=== PATIENT | male | born 1975 | race Caucasian/White ===

== ENCOUNTER 2022-09-05 14:09 | Outpatient (CLI) | payer MEDICAID, SELFPAY ==
[2022-09-05 15:00] LABS: Basophils # 0.1 10^3/uL (0.0-0.1); Basophils % 0.8 %; Eosinophils # 0.1 10^3/uL (0.0-0.8); Eosinophils % 1.3 %; Hematocrit 48.5 % (42.0-52.0); Hemoglobin 16.2 g/dL (11.7-16.6); Lymphocytes # 1.8 10^3/uL (0.8-4.8); Lymphocytes % 20.7 %; Mean Corpuscular HGB Conc 33.4 g/dL (30.0-36.0); Mean Corpuscular Hemoglobin 30.6 pg (28.0-34.0); Mean Corpuscular Volume 91.5 fl (80-94); Monocytes # 0.6 10^3/uL (0.2-0.9); Monocytes % 7.5 %; Neutrophils # 5.84 10^3/uL (1.8-7.7); Neutrophils % 69.2 %; Nucleated Red Blood Cells % 0 %; Platelet Count 197 10^3/cmm (130-400); White Blood Count 8.4 10^3/uL (4.0-10.0)
[2022-09-05 15:25] LABS: Estmated Average Glucose 131; Hemoglobin A1C 6.2 % (4.0-6.0)
[2022-09-05 15:35] LABS: Alanine Aminotransferase 18 U/L (0-41); Albumin Level 4.1 g/dL (3.5-5.2); Alkaline Phosphatase 153 U/L (40-130); Anion Gap 17.6 (5-19); Aspartate Amino Transferase 21 U/L (0-40); Blood Urea Nitrogen 26 mg/dL (6-20); Calcium 8.5 mg/dL (8.5-10.5); Carbon Dioxide 22 mmol/L (22-29); Chloride 104 mmol/L (98-107); Chol HDL Ratio 4.15 mg/dL (1.0-5.00); Cholesterol 112 mg/dL (0-200); Globulin 2.1 g/dL (1.3-4.6); Glomerular Filtration Rate 58.9 mL/min (90-130); Glucose 115 mg/dL (65-115); HDL Cholesterol 27 mg/dL (60-100); LDL Cholesterol Calculated 69 mg/dL (50-129); LDL HDL Ratio 2.56 RATIO (0.00-3.22); NT Pro B Type Natriuretic Pept 3457 pg/mL (0-125); Osmolality Calculated 294 mOsm/kg (285-295); Potassium 4.6 mmol/L (3.5-5.1); Sodium 139 mmol/L (136-145); Total Bilirubin 1.7 mg/dL (0.15-1.2); Total Protein 6.2 g/dL (6.6-8.7); Triglycerides 80 mg/dL (0-150)
== END 2022-09-05 14:10 | disposition home or self-care (01) ==
LOC: LAB 14:26
PROVIDERS: PCP Registered Nurse; Visit Provider Registered Nurse
DX: Z01.89 Encounter for other specified special examinations (principal)
CPT/HCPCS: 36415; 80053; 80061; 83036; 83880; 85025

== ENCOUNTER 2022-10-03 14:45 | Outpatient (CLI) | payer MEDICAID, SELFPAY ==
--- NOTE | 2022-10-03 14:51 | USCV_ITS ---
Aspen Stover Age: 47 Gender: M : 1975 Exam Date: 10/03/2022 15:02 Ordering Phys: Griselda Fernández Technologist: CT Exam Location: [facility] [place] Indication: chf BP: 112 / 79 HR: 97 Rhythm: Sinus Technical Quality: Adequate MEASUREMENTS (Male / Female) Normal Values 2D ECHO LV Diastolic Diameter PLAX 5.5 cm 4.2 - 5.9 / 3.9 - 5.3 cm LV Systolic Diameter PLAX 3.9 cm IVS Diastolic Thickness 1.9 cm 0.6 - 1.0 / 0.6 - 0.9 cm IVS Systolic Thickness 3.1 cm LVPW Diastolic Thickness 1.1 cm 0.6 - 1.0 / 0.6 - 0.9 cm LVPW Systolic Thickness 1.3 cm LVOT Diameter 2.1 cm LV Ejection Fraction 2D Teich 45.0 % LV Ejection Fraction MOD 2C 70.1 % LV Ejection Fraction 2C AL 70.0 % LA Diameter 4.3 cm Aorta at Sinotubular Diameter 3.2 cm IVC Diameter 2.1 cm M-MODE Aortic Annulus Diameter 2.9 cm LA Ao Ratio MM 1.7 MV E Point Septal Separation 0.9 cm DOPPLER AV Peak Velocity 359.7 cm/s LVOT Peak Velocity 119.0 cm/s AV Area Cont Eq vti 1.2 cm squared AV Area Cont Eq pk 1.1 cm squared MV Area PHT 3.7 cm squared Mitral E to A Ratio 1.6 MV E' Velocity 103.4 cm/s Mitral E to MV E' Ratio 10.0 Mitral E to LV E' Lateral Ratio 7.8 Mitral E to LV E' Septal Ratio 14.3 TR Peak Velocity 358.0 cm/s TR Peak Gradient 51.3 mmHg TR Mean Velocity 184.6 cm/s TR Mean Gradient 14.5 mmHg TR Velocity Time Integral 62.3 cm TV Peak E Velocity 121.0 cm/s Right Atrial Pressure 8.0 mmHg Pulmonary Artery Systolic Pressu 59.3 mmHg FINDINGS Left Ventricle Moderate left ventricular hypertrophy. Normal left ventricular size and systolic function, EF 70 %. No regional wall motion abnormalities. Grade III/IV diastolic dysfunction (restrictive filling pattern), severely elevated filling pressures. Right Ventricle The right ventricle is normal in size and function. Right Atrium Mildly increased right atrial size. Left Atrium Mildly increased left atrial size. Mitral Valve Thickened mitral valve. Mild mitral valve regurgitation. Aortic Valve Moderate to heavy aortic valve calcification. Moderate aortic valve stenosis, mean gradient 28 mmHg, JOSH 1.1 cm squared. Mild aortic valve regurgitation. Peak velocity of 3.82 m/s with a peak gradient of 58 mmHg Tricuspid Valve Mild tricuspid valve regurgitation. Moderate pulmonary hypertension with an estimated pulmonary artery peak systolic pressure of 59 mmHg Pulmonic Valve No pulmonary valve stenosis. Pericardium Normal pericardium without effusion. Aorta Normal aortic annulus size. IVC Normal IVC dimension with <50% respiratory change of the inferior vena cava. CONCLUSIONS Moderate left ventricular hypertrophy. Normal left ventricular size and systolic function, EF 70 %. No regional wall motion abnormalities. Grade III/IV diastolic dysfunction (restrictive filling pattern), severely elevated filling pressures. Mild biatrial enlargement. Moderate aortic valve stenosis, mean gradient 28mmHg, JOSH 1.1 cm squared. Peak velocity of 3.82 m/s and a peak gradient of 58 mmHg Mild aortic valve regurgitation. Moderate to heavy aortic valve calcification. Mild tricuspid valve regurgitation. Moderate pulmonary hypertension with an estimated pulmonary artery peak systolic pressure of 59 mmHg. There is no pericardial effusion. There are no intracardiac masses. Compared to the study from 03/14/2016, there is some worsening of the aortic valve stenosis, and development of pulmonary hypertension Dr Jose L Aguirre MD FAC (Electronically Signed) Final Date: 05 Oct 2022 09:19 S
== END 2022-10-03 14:46 | disposition home or self-care (01) ==
LOC: RAD 14:47
PROVIDERS: PCP Registered Nurse; Visit Provider Registered Nurse
DX: R79.89 Other specified abnormal findings of blood chemistry (principal); I35.0 Nonrheumatic aortic (valve) stenosis; I35.1 Nonrheumatic aortic (valve) insufficiency; I07.1 Rheumatic tricuspid insufficiency
CPT/HCPCS: 93306

== ENCOUNTER → 2022-10-08 14:24 | Outpatient (BNVA) | payer MEDICAID, SELFPAY | PROVIDERS: PCP Registered Nurse; Visit Provider Internal Medicine | DX: I11.0 Hypertensive heart disease with heart failure (principal); I50.9 Heart failure, unspecified; I35.0 Nonrheumatic aortic (valve) stenosis; R07.9 Chest pain, unspecified; F17.220 Nicotine dependence, chewing tobacco, uncomplicated | CPT/HCPCS: 93005; 99214 ==

== ENCOUNTER → 2022-10-08 14:54 | Outpatient (BNVA) | payer MEDICAID, SELFPAY | PROVIDERS: PCP Registered Nurse; Visit Provider Internal Medicine | DX: R07.9 Chest pain, unspecified (principal) | CPT/HCPCS: 93005 ==

== ENCOUNTER 2022-11-03 10:11 | Outpatient (CLI) | payer MEDICAID, SELFPAY ==
--- NOTE | 2022-11-03 | ECG_ITS ---
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 Interpretive Statements NAME OF STUDY: LEXISCAN SESTAMIBI STRESS TEST INDICATION: [Shortness of Breath, ] Initially stress test was exercise stress test however patient could not reach target heart rate due to symptoms. It was switched to Lexiscan. Procedure: At the baseline, the blood pressure was 116/78 mmHg with a heart rate of 89 bpm. The electrocardiogram showed normal sinus rhythm, normal axis with normal ST and T's. The Lexiscan was infused over a period of 20 seconds. A total of 0.4 mg of Lexiscan was infused. The stress phase was continued for a total of 5 minutes. Heart rate was at the end of stress phase was 100 bpm and a blood pressure of 117/78 mmHg. The EKG at the peak infusion revealed normal sinus rhythm with no significant ST-T wave changes. Sestamibi was injected 20 seconds after the Lexiscan infusion. Blood pressure at the end of recovery phase was 112/81 mmHg with a heart rate of 100 bpm. Conclusion: 1. Normal EKG response to Lexiscan infusion 2. No Lexiscan induced chest pain or cardiac arrhythmia. 3. Normal blood pressure and heart rate response. 4. Sestamibi/sestamibi perfusion scan pending; see separate report. Electronically Signed On 11-14-2022 14:36:21 CDT by Umair Lepe M.D. [id number]
[2022-11-03 10:54] VITALS: BMI 37.5
--- NOTE | 2022-11-03 10:56 | NMCV_ITS ---
NM karyn perf SPECT r/s* [id number] Aspen Stover Age: 47 Gender: M : 1975 Exam Date: 11/03/2022 11:36 Ordering Phys: Umair Lepe M.D ([email or web address]) Technologist: RAUL Montesinos Exam Location: [facility] Indications: CHEST PAIN STRESS TEST [facility] IMAGE PROTOCOL Rest/Stress 1 Lexiscan Day Radiopharmaceutical Dose (mCi) Administration Site Administered by Rest: Tc-99m 10.7 IV RAUL Montesinos Sestamibi Stress:Tc-99m 32.7 IV RAUL Zayas Sestamibi Rest: 03-Nov-2022 60 Discovery 630 Stress: 03-Nov-2022 30 Discovery 630 0.4mg Lexiscan. Images obtained in supine and prone position. SPECT RESULTS Technical Quality: Excellent Raw Data Analysis: Normal Image Corrections: No attenuation or motion correction applied Summed Stress Score: 10 Summed Rest Score: 9 Summed Difference Score: 2 PERFUSION FINDINGS There is a large in size fixed perfusion defect noted in inferior wall and apical wall. 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 Small sized area of prior infarct is also seen in LAD territory. FUNCTIONAL RESULTS (calculated via Gated SPECT) Stress Image LV EF (%): 47 Stress EDV (mL):206 TID: 0.94 Stress ESV (mL):109 FUNCTIONAL FINDINGS: LV systolic function is mildly reduced with EF of 47% IMPRESSIONS 1. Abnormal myocardial perfusion imaging with large area of prior infarct seen in RCA territory. 2. Small area of prior infarct is seen in LAD territory. 3. LV systolic function is mildly reduced with EF of 47% mUair Lepe MD (Electronically Signed) Final Date: 10 November 2022 10:38 S
[2022-11-03] MEDS: regadenoson 0.4 Mg/5 ml Syringe IVP (12:25)
[2022-11-03 12:44] VITALS: BP 112/81; PULSE 102
--- NOTE | 2022-11-03 12:47 | PC.NURSE ---
1220: Patient unable to reach target heart rate during Exercise MIBI due symptoms. Patient changed to Lexiscan per physicians orders. See orders.
== END 2022-11-03 10:12 | disposition home or self-care (01) ==
LOC: CDL 10:12
PROVIDERS: PCP Registered Nurse; Visit Provider Internal Medicine
DX: R07.9 Chest pain, unspecified (principal); I25.2 Old myocardial infarction
CPT/HCPCS: 36415; 78452; 93017; A9500; J2785

== ENCOUNTER 2023-01-27 21:12 | Emergency (ER) | payer MEDICAID, SELFPAY ==
[2023-01-27 21:13] VITALS: BP 138/72; PULSE 95; RESP 20; TEMP 36.7; O2SAT 92; BMI 38.9
--- NOTE | 2023-01-27 21:22 | ECG_ITS ---
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 Measurements Intervals [place] Rate: 98 P: 65 MA: 168 QRS: -5 QRSD: 105 T: 89 QT: 383 QTc: 489 Interpretive Statements SINUS RHYTHM LEFT ATRIAL ENLARGEMENT [-0.15mV P-WAVE IN V1/V2] Compared to ECG 10/08/2022 15:01:13 Right-axis deviation no longer present T-wave abnormality no longer present Electronically Signed On 01-28-2023 15:44:47 CDT by Aneudy Tapia M.D. [id number] f
--- NOTE | 2023-01-27 21:24 | XRR_ITS ---
PROCEDURE INFORMATION: Exam: XR Chest Exam date and time: 01/27/2023 9:40 PM Age: 47 years old Clinical indication: Pain; Chest pressure; Additional info: Chest pain TECHNIQUE: Imaging protocol: Radiologic exam of the chest. Views: 1 view. COMPARISON: No relevant prior studies available. FINDINGS: Lungs: Unremarkable. No consolidation. Pleural spaces: Unremarkable. No pleural effusion. No pneumothorax. Heart/Mediastinum: Cardiomegaly. Bones/joints: Unremarkable. XR/XR chest 1V portable [id number] IMPRESSION: Cardiomegaly, negative for infiltrate
--- NOTE | 2023-01-27 21:34 | W.ED.CHESTPA ---
HPI - Chest Pain General: Chief Complaint: Chest Pain Stated Complaint: CP Time Seen by Provider: 01/27/23 21:23 History of Present Illness: Patient presents to the ER with complaints of chest pain and shortness of breath since about 7 PM tonight. Patient was administered 4 aspirins, 1 nitro by EMS and states the pain has improved. Patient said he has had nausea and vomiting for about the last 2 days unrelated to the chest pain and shortness of breath. Patient does have a history of tachycardia with atrial flutters and palpitations. Patient did see Dr. Delarosa and had a stress test that was negative in the past several months. Patient appears in no acute distress at this time lying in bed comfortably playing on his phone. Review of Systems General: Reports: 10 or more systems reviewed and unremarkable except in HPI and below PFSH ED PFSH: Medical History CHF (congestive heart failure) Family History Father Heart disease Diabetes Mother Diabetes Grandfather Diabetes Heart disease Social History Smoking and tobacco status: current every day smoker smokeless tobacco Smokeless tobacco user: chewing tobacco Alcohol intake: current Alcohol intake frequency: holidays/special occasions only Substance/Drug Use: former Physical Exam Const: COMMON NORMALS: no acute distress, average body habitus, patient oriented x3, no limitations, healthy appearing, alert and well nourished HENMT: COMMON NORMALS: normocephalic, atraumatic, hearing grossly normal bilaterally, external ears normal and moist oral mucous membranes HEAD & SCALP: normocephalic and atraumatic EXTERNAL EAR: Yes external ears normal Eye: COMMON NORMALS: Equal, round and reactive pupils present, EOMs intact bilaterally and no scleral icterus PUPIL: Yes Equal, round and reactive pupils present Neck/C-Spine: COMMON NORMALS: no JVD Chest: COMMONS NORMALS: normal inspection of the chest and normal palpation of entire chest wall Resp: COMMON NORMALS: normal respiratory effort, No retractions, No use of accessory muscles and clear to auscultation bilaterally AUSCULTATION: clear to auscultation bilaterally Cardio: COMMON NORMALS: no JVD, regular rate, regular rhythm, S1 normal heart sound present, S2 normal heart sound present, No gallops present (Cardio), No clicks present (Cardio), No murmurs present (Cardio) and No rub (Cardio) RATE: regular rate RHYTHM: regular rhythm HEART SOUNDS: S1 normal heart sound present and S2 normal heart sound present GI: COMMON NORMALS: Normal to inspection, nondistended, normoactive bowel sounds present, Soft to palpation, non-tender, No hepatosplenomegaly present and no masses PALPATION: Yes Soft to palpation and Yes No hepatosplenomegaly present : COMMON NORMALS: Yes no CVA tenderness BLADDER/KIDNEY EXAM: Yes no CVA tenderness Back/Pelvis: COMMON NORMALS: no CVA tenderness Neuro: COMMON NORMALS: patient oriented x3 SENSORIUM/ORIENTATION: Yes alert Course Vital Signs: Vital signs: Vital Signs Temperature 98.0 F 01/27/23 21:13 Pulse Rate 93 01/27/23 22:20 Respiratory Rate 22 H 01/27/23 22:20 Blood Pressure 115/61 01/27/23 22:20 Pulse Oximetry 91 01/27/23 22:20 Oxygen Delivery Me thod Room Air 01/27/23 22:20 MDM - Chest Pain Medical Decision Making Patient presents to the ER via EMS for chest pain shortness of breath. Patient was given the standard physical exam and chest pain work-up with serial troponins and serial EKGs as well as other various labs. All of which did not show any acute changes for cardiac issues. Patient will be discharged home to follow-up with his PCP for further evaluation testing. Differential Diagnosis Unlikely acute massive pulmonary embolism, acute respiratory failure, acute myocardial infarction, cardiac arrest or sudden cardiac Medical Records I reviewed the patient's medical records. Lab Data I reviewed the patient's lab results. 01/27/23 21:40 01/27/23 21:40 Radiology Impressions Chest X-Ray 01/27/23 21:24 IMPRESSION: Cardiomegaly, negative for infiltrate Laboratory Results WBC 7.61 10^3/uL (3.29-11.43) 01/27/23 21:40 RBC 5.04 10^6/uL (3.85-5.65) 01/27/23 21:40 Hgb 15.60 g/dL (11.27-16.99) 01/27/23 21:40 Hct 46.5 % (37-53) 01/27/23 21:40 MCV 92.3 fl (82-101) 01/27/23 21:40 MCH 31.0 pg (27-33) 01/27/23 21:40 MCHC 33.5 g/dL (30-55) 01/27/23 21:40 RDW 15.3 % (12.1-15.1) H 01/27/23 21:40 Plt Count 209 10^3/cmm (157-399) 01/27/23 21:40 MPV 10.1 fL (7.4-10.4) 01/27/23 21:40 Neut % (Auto) 66.2 % 01/27/23 21:40 Lymph % (Auto) 22.9 % 01/27/23 21:40 [place] % (Auto) 8.3 % 01/27/23 21:40 Eos % (Auto) 1.3 % 01/27/23 21:40 Baso % (Auto) 0.9 % 01/27/23 21:40 Neut # (Auto) 5.04 10^3/uL (1.8-7.7) 01/27/23 21:40 Lymph # (Auto) 1.7 10^3/uL (0.8-4.8) 01/27/23 21:40 [place] # (Auto) 0.6 10^3/uL (0.2-0.9) 01/27/23 21:40 Eos # (Auto) 0.1 10^3/uL (0.0-0.8) 01/27/23 21:40 Baso # (Auto) 0.1 10^3/uL (0.0-0.1) 01/27/23 21:40 Nucleated RBC % (auto) 0 % 01/27/23 21:40 Nucleated RBCs # 0.0 /100WBC 01/27/23 21:40 Sodium 136 mmol/L (136-145) 01/27/23 21:40 Potassium 4.4 mmol/L (3.5-5.1) 01/27/23 21:40 Chloride 102 mmol/L (98-107) 01/27/23 21:40 Carbon Dioxide 22 mmol/L (22-29) 01/27/23 21:40 Anion Gap 16.4 (5-19) 01/27/23 21:40 BUN 24 mg/dL (6-20) H 01/27/23 21:40 Creatinine 1.0 mg/dL (0.7-1.2) 01/27/23 21:40 GFR Calculation 79.8 mL/min (90-130) L 01/27/23 21:40 Glucose 116 mg/dL (65-115) H 01/27/23 21:40 Calculated Osmolality 287 mOsm/kg (285-295) 01/27/23 21:40 Calcium 8.6 mg/dL (8.5-10.5) 01/27/23 21:40 Total Bilirubin 3.7 mg/dL (0.15-1.2) H 01/27/23 21:40 AST 26 U/L (0-40) 01/27/23 21:40 ALT 18 U/L (0-41) 01/27/23 21:40 Alkaline Phosphatase 168 U/L (40-130) H 01/27/23 21:40 Troponin T Baseline 24 ng/L (0-15) H 01/27/23 21:40 Troponin T 120 Minute 24.50 ng/L (0-15) H 01/27/23 23:34 Delta Troponin T 0.50 ABS# (0-10) 01/27/23 23:34 NT-Pro-B Natriuret Pep 1752 pg/mL (0-125) H 01/27/23 21:40 Total Protein 6.0 g/dL (6.6-8.7) L 01/27/23 21:40 Albumin 3.8 g/dL (3.5-5.2) 01/27/23 21:40 Globulin 2.2 g/dL (1.3-4.6) 01/27/23 21:40 EKG Data EKG 1: I personally reviewed and interpreted this EKG as follows: EKG interpretation date: 01/27/23 EKG interpretation time: 21:22 Prior EKG tracings: not available for review Interpretation: EKG shows ventricular rate 98 beats minute, AZ interval 168, QRS duration 105, QTc of 438, sinus rhythm, left atrial enlargement EKG 2: I personally reviewed and interpreted this EKG as follows: EKG interpretation date: 01/27/23 EKG interpretation time: 23:06 Prior EKG tracings: available for review Interpretation: EKG shows ventricular rate 88 bpm, AZ interval 161, QRS duration 104, QTc 444, sinus rhythm, possible left atrial lodgment, nonspecific T wave abnormality Discharge Plan Discharge Patient Disposition: Home Clinical Impression: Chest pain, non-cardiac Condition: Stable Prescriptions: No Action bumetanide 2 mg tablet 2 mg PO DAILY albuterol sulfate 90 mcg/actuation HFA aerosol inhaler 2 puff inhalation Q6H PRN lisinopril 20 mg tablet 20 mg PO DAILY divalproex [Depakote] 500 mg tablet,delayed release (DR/EC) 500 mg PO BID trazodone 100 mg tablet 100 mg PO DAILY PRN sertraline 150 mg capsule 150 mg PO DAILY Discharge Orders: Discharge ED (Routine); Ordered 01/28/23 Ordered By: Chirag Diggs Referrals: Griselda Fernández [Primary Care Provider] - 1 week Patient Instructions: Chest Pain - Noncardiac Activity Restrictions/Additional Instructions: Please follow-up with your family practice physician in the next 7 days or sooner as needed. If your pain returns or worsens please feel free to come back to the ER for further evaluation and treatment. Coding Level of Care Code ED Space Controller for Jose Kim
[2023-01-27 21:43] LABS: Basophils # 0.1 10^3/uL (0.0-0.1); Basophils % 0.9 %; Eosinophils # 0.1 10^3/uL (0.0-0.8); Eosinophils % 1.3 %; Hematocrit 46.5 % (37-53); Lymphocytes # 1.7 10^3/uL (0.8-4.8); Lymphocytes % 22.9 %; Mean Corpuscular HGB Conc 33.5 g/dL (30-55); Mean Corpuscular Volume 92.3 fl (82-101); Mean Platelet Volume 10.1 fL (7.4-10.4); Monocytes # 0.6 10^3/uL (0.2-0.9); Monocytes % 8.3 %; Neutrophils # 5.04 10^3/uL (1.8-7.7); Neutrophils % 66.2 %; Nucleated Red Blood Cells % 0 %; Platelet Count 209 10^3/cmm (157-399); Red Blood Count 5.04 10^6/uL (3.85-5.65); Red Cell Distribution Width 15.3 % (12.1-15.1); White Blood Count 7.61 10^3/uL (3.29-11.43)
[2023-01-27 22:10] LABS: Troponin(5th) Baseline 24 ng/L (0-15)
[2023-01-27 22:18] LABS: Alanine Aminotransferase 18 U/L (0-41); Albumin Level 3.8 g/dL (3.5-5.2); Alkaline Phosphatase 168 U/L (40-130); Anion Gap 16.4 (5-19); Aspartate Amino Transferase 26 U/L (0-40); Blood Urea Nitrogen 24 mg/dL (6-20); Calcium 8.6 mg/dL (8.5-10.5); Carbon Dioxide 22 mmol/L (22-29); Chloride 102 mmol/L (98-107); Globulin 2.2 g/dL (1.3-4.6); Glomerular Filtration Rate 79.8 mL/min (90-130); Glucose 116 mg/dL (65-115); NT Pro B Type Natriuretic Pept 1752 pg/mL (0-125); Osmolality Calculated 287 mOsm/kg (285-295); Potassium 4.4 mmol/L (3.5-5.1); Sodium 136 mmol/L (136-145); Total Bilirubin 3.7 mg/dL (0.15-1.2)
[2023-01-27 22:20] VITALS: BP 115/61; PULSE 93; RESP 22; O2SAT 91
--- NOTE | 2023-01-27 23:24 | ECG_ITS ---
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 Measurements Intervals [place] Rate: 88 P: 64 [place]: 161 QRS: -13 QRSD: 104 T: 97 QT: 399 QTc: 483 Interpretive Statements SINUS RHYTHM POSSIBLE LEFT ATRIAL ENLARGEMENT [-0.1mV P-WAVE IN V1/V2] NONSPECIFIC T-WAVE ABNORMALITY Compared to ECG 10/08/2022 15:01:13 Right-axis deviation no longer present T-wave abnormality still present Electronically Signed On 01-27-2023 23:15:19 CDT by Umair Lepe M.D. [id number]
[2023-01-28 00:31] VITALS: BP 121/67; PULSE 91; RESP 20; O2SAT 94
== END 2023-01-28 00:32 | disposition home or self-care (01) ==
PROVIDERS: Emergency Provider Emergency Medicine; PCP Registered Nurse
DX: R07.89 Other chest pain (principal); I50.9 Heart failure, unspecified; F17.220 Nicotine dependence, chewing tobacco, uncomplicated
CPT/HCPCS: 36415; 71045; 80053; 83880; 84484; 85025; 93005; 99285

== ENCOUNTER 2023-03-10 13:03 | Outpatient (CLI) | payer MEDICAID, SELFPAY ==
--- NOTE | 2023-03-10 13:15 | USCV_ITS ---
Aspen Stover Age: 48 Gender: M : 1975 Exam Date: 03/10/2023 13:18 Ordering Phys: Umair Lepe M.D ([email or web address]) Technologist: Exam Location[place] [facility] Indication: as ai BP: 118 / 68 HR: 95 Rhythm: Sinus Technical Quality: Adequate MEASUREMENTS (Male / Female) Normal Values 2D ECHO LVOT Diameter 2.1 cm LV Ejection Fraction MOD 2C 70.2 % LV Ejection Fraction 2C AL 70.3 % LA Diameter 4.2 cm IVC Diameter 2.0 cm M-MODE Aortic Annulus Diameter 2.8 cm LA Ao Ratio MM 1.6 MV E Point Septal Separation 1.1 cm DOPPLER AV Peak Velocity 374.0 cm/s LVOT Peak Velocity 108.0 cm/s AV Area Cont Eq vti 1.0 cm squared AV Area Cont Eq pk 1.0 cm squared MV Area PHT 5.9 cm squared Mitral E to A Ratio 1.2 MV E' Velocity 90.2 cm/s Mitral E to MV E' Ratio 13.3 Mitral E to LV E' Lateral Ratio 8.1 Mitral E to LV E' Septal Ratio 38.9 TR Peak Velocity 329.7 cm/s TR Peak Gradient 43.5 mmHg Right Atrial Pressure 3.0 mmHg Pulmonary Artery Systolic Pressu 46.5 mmHg RV Acceleration Time 0.1 s FINDINGS Left Ventricle Left ventricle is normal in size. LV systolic function is normal with EF of 60-65%. No regional wall motion abnormalities. Right Ventricle Normal in size and function Right Atrium Normal in size Left Atrium Normal in size Mitral Valve Mild mitral regurgitation. Aortic Valve Aortic valve is thickended. Moderate to severe aortic stenosis with mean gradient across aortic valve of 0.85cm2 and mean gradient across aortic valve of 31 mmHg. Moderate aortic regurgitation. Tricuspid Valve Mild tricuspid regurgitation. RVSP is 40-45mmHg. This is consistent with mild pulmonary hypertension Pulmonic Valve Not well visualized Pericardium Normal Aorta Normal in size IVC Appears to be normal CONCLUSIONS LV systolic function is normal with EF of 60-65% Mild mitral regurgitation Moderate to severe aortic stenosis with mean gradient of 0.85cm2 and mean gradient across aortic valve of 31mmHg. Moderate aortic regurgitation Mild pulmonary hypertension Mild tricuspid regurgitation Compared to prior echocardiogram from 10/03/2022, aortic stenosis has progressed and is moderate to severe now. Also has moderate aortic regurgitation Umair Lepe MD (Electronically Signed) Final Date: 14 March 2023 12:59 S
== END 2023-03-10 13:04 | disposition home or self-care (01) ==
PROVIDERS: PCP Registered Nurse; Visit Provider Internal Medicine
DX: R06.02 Shortness of breath (principal); I08.3 Combined rheumatic disorders of mitral, aortic and tricuspid valves; I27.20 Pulmonary hypertension, unspecified
CPT/HCPCS: 93306; 99214

== ENCOUNTER 2023-03-26 05:33 | Outpatient (CLI) | payer MEDICAID, SELFPAY ==
[2023-03-26] VITALS (17 sets, daily range): BP systolic 87–126; BP diastolic 44–77; PULSE 81–95; RESP 12–21; TEMP 36.6; O2SAT 92–100; BMI 37.9
--- NOTE | 2023-03-26 06:00 | XACV_ITS ---
Exam Room: 2 Ht: 170 cm Wt: 110 kg BSA: 2.33 m2 Gender: Male : 1975 Any Known Allergies: Penicillins Exam Priority: Routine Procedure(s): Procedure Description: Diagnostic procedure Procedure Description: Left Heart Catheterization Procedure Description: Right Heart Catheterization Procedure Description: O2 saturation Procedure Description: Coronary Angiography Diagnostic Cath Status: Elective Diagnostic Findings * INDICATION: 48-year-old man with past medical history of hypertension has been having worsening dyspnea on exertion. He had moderate to severe aortic stenosis by echo, atleast moderate aortic regurgitation and had a stress test that was abnormal. Plan for right and left heart cath with valve study. * Left Main is short and has no disease. * Left Anterior Descending has no significant disease. * Circumflex has no significant disease. * RCA does not have significant disease. Small sized Posterior Descending Right: obstructive 70% stenosis, JOSE: 3 flow. * Right heart cath findings: RA pressure: 21 mmHg. RV pressure: 73/3/ 24 mmHg. PA pressure: 81/39/54 mmHg. PCW: 25 mmHg TP. Cardiac output: 3.57 L/min ao sat: 96%. PA sat: 61%. PVR: 8.12 Wood units. Severe mixed pulmonary hypertension Aortic valve study: Aortic valve is heavily calcified. Mean gradient across aortic valve: 46 mmHg Aortic valve area is 0.43cm2. * Coronary angiography shows co-dominance. Conclusions 1. Nonobstructive CAD 2. with stenosis of 3. small sized 4. PDA. 5. Medical management. 6. Severe aortic stenosis. 7. Severely elevated right and left sided cardiac pressures. 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 Recommendations * We will refer patient to CT surgery team for aortic valve replacement. Aortic valve anatomy could not be well visualized because of heavy calcification however is likely bicuspid given patient's history, age, calcification aortic regurgitation (which is at least moderate in intensity). * We will uptitrate diuretic therapy. * Outpatient cardiology follow up in 1-2 weeks. Interventional RX Recommendation: other cardiac therapy w/o CABG/PCI Diagnostic RX Recommendation: other cardiac therapy w/o CABG/PCI Anticoagulation: Heparin Pressures Phase:Rest AO : 130 / 61 ( 84 ) @ 9:29:00 AM 88 / 64 ( 75 ) @ 9:31:00 AM 118 / 85 ( 101 ) @ 9:41:00 AM 99 / 82 ( 90 ) @ 9:42:00 AM 92 / 67 ( 79 ) @ 9:53:00 AM LV : 156 / -1 / 43 @ 9:53:00 AM RV : 73 / 3 / 24 @ 9:21:00 AM PA : 81 / 39 ( 54 ) @ 9:19:00 AM RA : a wave = 28 v wave = 24 mean = 21 @ 9:21:00 AM PCW : a wave = 30 v wave = 27 mean = 25 @ 9:19:00 AM O2 Content Phase:Rest PA : O2 Content O2: 61.1 @ 9:31:00 AM Saturations Phase:Rest AO : 96 @ 9:29:00 AM PA : 61 @ 9:31:00 AM Cardiac Output Phase:Rest Brandon : 4 @ 9:02:48 AM Brandon Cardiac Index: 2 @ 9:02:48 AM Flow Phase:Rest Qp : 4 @ 9:02:48 AM Qs : 4 @ 9:02:48 AM Valves Phase:DefaultPhase AV : 64.0 @ 9:02:48 AM 64.0 @ 9:02:48 AM AV Mean Gradient: 46.0 @ 9:02:48 AM 46.0 @ 9:02:48 AM AV Flow: 129 @ 9:02:48 AM AV Area: 0.4 @ 9:02:48 AM AV Area Index: 0.20 @ 9:02:48 AM Clinical Evaluation EBL: 5mL-10mL Procedural Details Pre-Procedure Time Out. Identified patient by full name and date of as verbalized by the patient/guarantor. Does the consent match the physician's order: Yes. Accurate & Complete Informed Consent: Yes. Inpatient/Outpatient History & Physical on Chart: Yes. If H&P is completed, is and addenduem needed: No; If yes, is the addendum complete: N/A. Visualize and Verify Site with Patient/Guarantor: N/A. Relevant Radiology Images available: Yes. Pre-op teaching completed and patient verbalized understanding. The risks, benefits, and alternatives of sedation and/or procedure were discussed by physician. The patient agrees to continue. Procedure started. Physician arrived. [facility] Clinical Fraility Score: 3: Managing Well. Recreation Activities Coordinator Indications: Valvular Disease. Chest Pain Symptom Assessment: Asymptomatic. Correct patient, site and procedure confirmed by cath team. PERRLA. Strong, equal hand audio visual collections coordinator bilaterally. Lungs clear x 5 lobes. IV Site on Arrival: 20 gauge in the right anticubital. IV Site on Arrival: 20 gauge in the left anticubital. IV Fluids: 0.9% NaCl at KVO. 0 mL infused prior to supervisor laboratory. Pre Procedural Pulses: bilateral dorsalis pedis was 3+. Pre Procedural Pulses: bilateral posterior tibial was 3+. Pre Procedural Pulses: bilateral radial was 3+. right groin was prepped with chloroprep then draped in the usual sterile fashion. right radial was prepped with chloroprep then draped in the usual sterile fashion. Baseline sample Acquired. HR: 89 BPM. Lidocaine 1% infiltrated to the right brachial. Sheath wire inserted through the right brachial IV catheter. IV catheter removed OTW. Ambler-Sneha MON catheter inserted. Oximetry samples were obtained. Normal venous range: 60-85%. Normal arterial range: 95-100%. Pressure measurements obtained. Ambler-Sneha out. Lidocaine 1% infiltrated to the right radial. Arterial access obtained. Respiratory called to run O2 saturations. Oxygen started at 2liters/min via nasal canula. A 5 south korean TIG catheter in over wire. Multiple views taken of left coronary artery. Catheter removed over the exchange wire. A 5 south korean JL3.5 catheter in over wire. Catheter removed over the exchange wire. A 5 south korean JR4 catheter in over wire. Multiple views taken of left coronary artery. Catheter redirected to the RCA. Catheter removed over the exchange wire. A 6 south korean Mabscott Pig catheter in over wire. Gradient taken: LV 156/-2,43; AO 92/67(79); Mean: 46mmHg, Peak to Peak: 64mmHg, SEP: 28sec/min; HR: 89 BPM; SpO2: 96%. Catheter removed over the exchange wire. A TR Band was successful obtaining hemostatsis at the Right Radial artery insertion site. A Manual Compression was successful obtaining hemostatsis at the Right Brachial Vein insertion site. Vital chart was stopped. Post Procedure: Pulses reassessed and unchanged. PERRLA. Strong, equal hand audio visual collections coordinator bilaterally. No VTE prophylaxis required. Medication's Wasted: Lidocaine 1% = 3 mL. Medication's Wasted: Nitro = 49.4 mcg. Medication's Wasted: Other = Fentanyl 50mcg Versed 2 mg. Total IV fluids: 80 mL. Complications: None. Post-op diagnosis: Valvular Disease. Estimated blood loss: 5mL-10mL. Responsiveness - Normal response to verbal stimuli; alert and oriented, PERRLA. Airway - Unaffected, no intervention required; spontaneous ventilation. Circulation: W/N/L, pulses unchanged. Nausea/Vomiting: No. Procedure completed. Patient transferred by wheelchair to CPRU. Access Site Site: Right Brachial Vein Sheath Size: 6 Fr Hemostasis Method: Manual Compression Hemostasis Success: Successful Site: Right Radial artery Sheath Size: 6 Fr Hemostasis Method: TR Band Hemostasis Success: Successful Procedure Medications Start: 7:55 AM Stop: 7:55 AM Medication: Versed 1 mg and Fentanyl 25 mcg Amount: 1 Route: I.V. Start: 8:15 AM Stop: 8:15 AM Medication: Versed Amount: 1 mg Route: I.V. Start: 8:27 AM Stop: 8:27 AM Medication: Nitrogylcerin Amount: 200 mcg Route: I.A. Start: 8:29 AM Stop: 8:29 AM Medication: Heparin Amount: 5000 units Start: 8:45 AM Stop: 8:45 AM Medication: Fentanyl Amount: 25 mcg Route: I.V. Start: 8:45 AM Stop: 8:45 AM Medication: Nitrogylcerin Amount: 200 mcg Route: I.A. Start: 8:49 AM Stop: 8:49 AM Medication: Nitrogylcerin Amount: 200 mcg Route: I.A. I, the attending physician, have reviewed and verified all procedure medications. Yes, all medications given per verbal order History/Risk Factors Hypertension: Yes Dyslipidemia: No Peripheral Arterial Disease (PAD): No Myocardial Infarction (MA): No Obesity: No Renal Disease: No Tobacco Use: Current/Recent(w/in 1 year) Prior Interventions PCI: No CABG: No Valve Surgery: No Report Signatures Finalized by Umair Lepe MD on 03/29/2023 11:56 AM
[2023-03-26 06:27] LABS: Basophils # 0.1 10^3/uL (0.0-0.1); Basophils % 0.8 %; Eosinophils # 0.2 10^3/uL (0.0-0.8); Eosinophils % 3.7 %; Hematocrit 49.6 % (37-53); Lymphocytes # 1.6 10^3/uL (0.8-4.8); Mean Corpuscular HGB Conc 33.3 g/dL (30-55); Mean Corpuscular Hemoglobin 30.7 pg (27-33); Mean Corpuscular Volume 92.4 fl (82-101); Mean Platelet Volume 9.9 fL (7.4-10.4); Monocytes # 0.5 10^3/uL (0.2-0.9); Monocytes % 7.7 %; Neutrophils # 3.81 10^3/uL (1.8-7.7); Neutrophils % 61.5 %; Nucleated Red Blood Cells % 0 %; Platelet Count 188 10^3/cmm (157-399); Red Blood Count 5.37 10^6/uL (3.85-5.65); Red Cell Distribution Width 15.5 % (12.1-15.1)
[2023-03-26] MEDS: diphenhydrAMINE 50 mg Capsule PO (06:41)
[2023-03-26] MEDS: aspirin 325 mg Tablet PO (06:41)
[2023-03-26 06:48] LABS: Anion Gap 15.1 (5-19); Blood Urea Nitrogen 23 mg/dL (6-20); Calcium 9.3 mg/dL (8.5-10.5); Carbon Dioxide 24 mmol/L (22-29); Chloride 106 mmol/L (98-107); Glomerular Filtration Rate 71.1 mL/min (90-130); Glucose 152 mg/dL (65-115); Osmolality Calculated 299 mOsm/kg (285-295); Potassium 4.1 mmol/L (3.5-5.1); Sodium 141 mmol/L (136-145)
--- NOTE | 2023-03-26 07:53 | P.HP_ITS ---
Same Day Surgery H&P Indication for Procedure/HPI DATE OF PROCEDURE: March 26, 2023 CHIEF COMPLAINT/INDICATIONFOR SURGICAL PROCEDURE: Moderate to severe aortic stenosis/abnormal stress test/ Worsening dyspnea on exertion PREOP DIAGNOSIS: Moderate to severe aortic stenosis/abnormal stress test/ Worsening dyspnea PLANNED PROCEDURE: Operation Date: 03/26/23 07:00 Proposed Procedures p RHC and LHC 92912 I35.0,R93.1(Bilateral) - Umair Lepe M.D Possible percutaneous coronary intervention 48-year-old man with past medical history of hypertension has been having worsening dyspnea on exertion. He has a moderate to severe aortic stenosis and had a stress test that was abnormal. Plan for right and left heart cath with valve study. Medications/Allergies* Home Medications Medication Instructions Recorded Confirmed Type albuterol sulfate 90 mcg/actuation 2 puff inhalation Q6H PRN 10/08/22 03/26/23 History aerosol inhaler Shortness Of Breath divalproex 500 mg tablet,delayed 500 mg PO BID 10/08/22 03/26/23 History release (Depakote) lisinopril 20 mg tablet 20 mg PO DAILY 10/08/22 03/26/23 History sertraline 150 mg capsule 150 mg PO DAILY 10/08/22 03/26/23 History trazodone 100 mg tablet 100 mg PO DAILY PRN Sleep 10/08/22 03/25/23 History furosemide 20 mg tablet (Lasix) 20 mg PO BID 03/25/23 03/26/23 History Allergies/Adverse Reactions Allergy/AdvReac Type Severity Reaction Status Date / Time Penicillins Allergy Severe ALGY-Anaphy Verified 03/25/23 12:08 laxis Current Medications: Generic Name Dose Route Start Last Admin Trade Name Freq PRN Reason Stop Dose Admin Sodium Chloride 1,000 mls @ 50 mls/hr 03/26/23 06:00 03/26/23 06:41 Sodium Chloride 0.9% IV 03/27/23 01:59 Not Given .Q20H ONE Pertinent History/Comorbid Conditions* Medical History (Updated 02/05/23 @ 00:02 by AR Woods) CHF (congestive heart failure) Family History (Updated 10/08/22 @ 15:08 by Rachelle Bearden RN) Diabetes Father Mother Grandfather Heart disease Father Grandfather Social History Smoking and tobacco/nicotine status: current every day tobacco/nicotine user smokeless tobacco Smokeless tobacco user: chewing tobacco Alcohol intake: current Alcohol intake frequency: holidays/special occasions only Substance/Drug Use: former Pertinent Exam Findings alert, oriented x 3, clear to auscultation bilaterally and regular rate & rhythm Conscious Sedation Assessment PATIENT ASSESSED PRIOR TO SEDATION, WITH NO CHANGE NOTED: Yes AIRWAY EVAL/ANESTHESIA PLAN: normal airway, ASA III, Local Anesthesia, Risks, b enefits & alternatives of sedation and/or procedure discussed and Patient agrees to continue as planned ADDITIONAL INFORMATION: Moderate sedation Recommendations Surgery/Procedure today (Right heart cath/left heart cath/ aortic valve study) Coding Level of Care Code Acute Code for Chg Fwd Diagnoses
[2023-03-26 08:38] LABS: Alveolar-Arterial Oxygen Gradi 7.4 mmHg (5-10); Arterial Blood Gas Hematocrit 47.3 % (42-52); Blood Gas Operator Identificat glc; Blood Gas Sample Site Not specified; Blood Gas Sample Type Arterial; Carboxyhemoglobin 1.9 %THgb (0.4-20.1); HGB O2 Sat 59.6 % (95-100); Methemoglobin 0.5 % (0.4-1.5); Total Hemoglobin 15.4 g/dL (14-18)
[2023-03-26 08:41] LABS: Alveolar-Arterial Oxygen Gradi 1.9 mmHg (5-10); Blood Gas Operator Identificat glc; Blood Gas Sample Type Arterial; Carboxyhemoglobin 1.6 %THgb (0.4-20.1); HGB O2 Sat 95.8 % (95-100); Methemoglobin 0.1 % (0.4-1.5); Total Hemoglobin 15.6 g/dL (14-18)
== END 2023-03-26 05:34 | disposition home or self-care (01) ==
PROVIDERS: PCP Registered Nurse; Visit Provider Internal Medicine
DX: I25.10 Atherosclerotic heart disease of native coronary artery without angina pectoris (principal); I35.0 Nonrheumatic aortic (valve) stenosis; I27.20 Pulmonary hypertension, unspecified; I11.0 Hypertensive heart disease with heart failure; I50.9 Heart failure, unspecified; F17.220 Nicotine dependence, chewing tobacco, uncomplicated
CPT/HCPCS: 36415; 80048; 82810; 85025; 93460; 96361; 96365; 99152; 99153; C1751; C1769; C1887; C1894; J1644; J2250; J3010; J3490; J7030; Q0163; Q9967

== ENCOUNTER → 2023-04-06 14:29 | Outpatient (BNVA) | payer MEDICAID, SELFPAY | PROVIDERS: PCP Registered Nurse; Visit Provider Nurse Practitioner Family | DX: I50.9 Heart failure, unspecified (principal); I35.0 Nonrheumatic aortic (valve) stenosis; F17.220 Nicotine dependence, chewing tobacco, uncomplicated | CPT/HCPCS: 36415; 80048; 85025; 85610; 99214 ==

== ENCOUNTER → 2023-05-04 14:54 | Outpatient (BNVA) | payer MEDICAID, SELFPAY | PROVIDERS: PCP Registered Nurse; Visit Provider Internal Medicine | DX: I11.0 Hypertensive heart disease with heart failure (principal); I50.9 Heart failure, unspecified; I35.0 Nonrheumatic aortic (valve) stenosis; F17.220 Nicotine dependence, chewing tobacco, uncomplicated | CPT/HCPCS: 99214 ==

== ENCOUNTER → 2023-08-19 10:51 | Outpatient (BNVA) | payer MEDICAID, SELFPAY | PROVIDERS: PCP Registered Nurse; Visit Provider Nurse Practitioner Family | DX: Z95.0 Presence of cardiac pacemaker (principal); Z95.2 Presence of prosthetic heart valve; Z79.01 Long term (current) use of anticoagulants; F17.220 Nicotine dependence, chewing tobacco, uncomplicated | CPT/HCPCS: 99213; 99214 ==

== ENCOUNTER → 2023-12-07 12:33 | Outpatient (BNVA) | payer MEDICAID, SELFPAY | PROVIDERS: PCP Registered Nurse; Visit Provider Internal Medicine | DX: I11.0 Hypertensive heart disease with heart failure (principal); I50.9 Heart failure, unspecified; I35.0 Nonrheumatic aortic (valve) stenosis; Z95.0 Presence of cardiac pacemaker; Z95.2 Presence of prosthetic heart valve; Z72.0 Tobacco use; Z79.01 Long term (current) use of anticoagulants | CPT/HCPCS: 99214 ==

== ENCOUNTER → 2024-07-26 14:07 | Outpatient (BNVA) | payer MEDICAID, SELFPAY | PROVIDERS: PCP Registered Nurse; Visit Provider Internal Medicine | DX: I11.0 Hypertensive heart disease with heart failure (principal); I50.9 Heart failure, unspecified; I35.0 Nonrheumatic aortic (valve) stenosis; Z95.0 Presence of cardiac pacemaker; Z95.2 Presence of prosthetic heart valve | CPT/HCPCS: 99214 ==

== ENCOUNTER 2024-08-25 13:16 | Outpatient (CLI) | payer MEDICAID, SELFPAY ==
--- NOTE | 2024-08-25 13:30 | USCV_ITS ---
Aspen Stover Age: 49 Gender: M : 1975 Exam Date: 08/25/2024 13:28 Ordering Phys: Umair Lepe M.D ([email or web address]) Technologist: Exam Location: [facility] [place] Indication: mechanical ao pros BP: 150 / 80 HR: 91 Rhythm: Atrial flutter Technical Quality: Adequate MEASUREMENTS (Male / Female) Normal Values 2D ECHO LV Diastolic Diameter PLAX 4.4 cm 4.2 - 5.9 / 3.9 - 5.3 cm IVS Diastolic Thickness 1.4 cm 0.6 - 1.0 / 0.6 - 0.9 cm IVS Systolic Thickness 1.7 cm LVPW Diastolic Thickness 1.4 cm 0.6 - 1.0 / 0.6 - 0.9 cm LVPW Systolic Thickness 1.4 cm LVOT Diameter 2.0 cm LV Ejection Fraction 2D Teich 61.3 % LV Ejection Fraction MOD 4C 60.4 % LV Ejection Fraction MOD 2C 61.3 % LV Ejection Fraction 2C AL 60.5 % LA Diameter 4.3 cm RA Systolic Volume 4C AL 41.4 ml RA Systolic Volume 4C MOD 41.2 ml Aorta at Sinotubular Diameter 2.9 cm M-MODE LA Ao Ratio MM 1.1 AV Cusp Separation MM 2.2 cm DOPPLER AV Peak Velocity 259.0 cm/s LVOT Peak Velocity 86.0 cm/s AV Area Cont Eq vti 1.1 cm squared AV Area Cont Eq pk 1.0 cm squared MV Peak Velocity 126.0 cm/s MV Area PHT 4.4 cm squared Mitral E to A Ratio 2.9 TV Peak Velocity 199.0 cm/s TR Peak Velocity 241.0 cm/s TR Peak Gradient 23.2 mmHg TV Peak E Velocity 110.0 cm/s PV Peak Velocity 114.0 cm/s FINDINGS Left Ventricle Technically limited quality echocardigoram because of poor ultrasonic windows. LV systolic function is grossly normal Right Ventricle Grossly hypokinetic Right Atrium Normal in size Left Atrium Normal in size Mitral Valve Grossly noraml. Mild mitral regurgitation. Aortic Valve Not well visualized. Likely prosthetic valve. No significant stenosis. DVI is normal and is 0.33. Mean gradient across echo is 14. Tricuspid Valve Insufficient TR jet to calculate RVSP Pulmonic Valve Not well visualized Pericardium Normal Aorta Normal in size IVC Not well visualized CONCLUSIONS Technically limited quality echocardigoram because of poor ultrasonic windows. LV systolic function is grossly normal RV is grossly hypokinetic Mild mitral regurgitation Aortic valve appears prosthetic. DVI is normal and mean gradienct across prosthesis is mildly elevated. Umair Lepe MD (Electronically Signed) Final Date: 11 September 2024 13:49 S
== END 2024-08-25 13:17 | disposition home or self-care (01) ==
PROVIDERS: PCP Registered Nurse; Visit Provider Internal Medicine
DX: I35.0 Nonrheumatic aortic (valve) stenosis (principal); R93.1 Abnormal findings on diagnostic imaging of heart and coronary circulation; I34.0 Nonrheumatic mitral (valve) insufficiency
CPT/HCPCS: 93306

== ENCOUNTER → 2024-09-16 09:54 | Outpatient (BNVA) | payer MEDICAID, SELFPAY | PROVIDERS: PCP Registered Nurse; Visit Provider Internal Medicine | DX: I35.0 Nonrheumatic aortic (valve) stenosis (principal); I11.0 Hypertensive heart disease with heart failure; I50.9 Heart failure, unspecified; Z79.01 Long term (current) use of anticoagulants; Z95.0 Presence of cardiac pacemaker; Z95.2 Presence of prosthetic heart valve; F17.220 Nicotine dependence, chewing tobacco, uncomplicated | CPT/HCPCS: 99213 ==

== ENCOUNTER → 2024-10-04 10:37 | Outpatient (BNVA) | payer SELFPAY | PROVIDERS: PCP Registered Nurse; Visit Provider Internal Medicine | DX: Z95.2 Presence of prosthetic heart valve (principal) | CPT/HCPCS: 85610 ==

== ENCOUNTER → 2024-10-25 10:04 | Outpatient (BNVA) | payer SELFPAY | PROVIDERS: PCP Registered Nurse; Visit Provider Internal Medicine | DX: Z95.2 Presence of prosthetic heart valve (principal) | CPT/HCPCS: 85610 ==

== ENCOUNTER → 2024-11-01 10:10 | Outpatient (BNVA) | payer SELFPAY | PROVIDERS: PCP Registered Nurse; Visit Provider Internal Medicine | DX: Z95.2 Presence of prosthetic heart valve (principal) | CPT/HCPCS: 85610 ==

== ENCOUNTER 2024-11-22 10:23 | Outpatient (CLI) | payer SELFPAY ==
[2024-11-22 13:06] LABS: INR 6.00 (0.83-1.21)
== END 2024-11-22 10:24 | disposition home or self-care (01) ==
PROVIDERS: PCP Registered Nurse; Visit Provider Internal Medicine
DX: Z95.2 Presence of prosthetic heart valve (principal)
CPT/HCPCS: 36415; 85610

== ENCOUNTER → 2024-12-06 11:11 | Outpatient (BNVA) | payer SELFPAY | PROVIDERS: PCP Registered Nurse; Visit Provider Internal Medicine | DX: Z95.2 Presence of prosthetic heart valve (principal) | CPT/HCPCS: 36415; 85610 ==

== ENCOUNTER → 2024-12-13 11:30 | Outpatient (BNVA) | payer SELFPAY | PROVIDERS: PCP Registered Nurse; Visit Provider Internal Medicine | DX: Z95.2 Presence of prosthetic heart valve (principal) | CPT/HCPCS: 36415; 85610 ==

== ENCOUNTER 2024-12-20 09:56 | Outpatient (CLI) | payer SELFPAY ==
[2024-12-20 10:48] LABS: INR 1.98 (0.83-1.21)
== END 2024-12-20 09:57 | disposition home or self-care (01) ==
PROVIDERS: PCP Registered Nurse; Visit Provider Internal Medicine
DX: Z95.2 Presence of prosthetic heart valve (principal)
CPT/HCPCS: 36415; 85610

== ENCOUNTER → 2024-12-27 10:27 | Outpatient (BNVA) | payer SELFPAY | PROVIDERS: PCP Registered Nurse; Visit Provider Internal Medicine | DX: Z95.2 Presence of prosthetic heart valve (principal) | CPT/HCPCS: 85610 ==

== ENCOUNTER 2025-01-10 10:20 | Inpatient (IN) | payer SELFPAY ==
[2025-01-10] VITALS (33 sets, daily range): BP systolic 75–147; BP diastolic 46–69; PULSE 69–120; RESP 16–35; TEMP 36.4–37.1; O2SAT 80–100; BMI 39.1; BMI 34.2
--- OUTSIDE RECORDS SUMMARY | 2025-01-10 10:24 | XMS_ITS | Clinical Summary ---
Author Organization [facility] Address [address] [place] [address] Phone Care Team Providers Care Dry Placer Machine Operator Name Role Phone Unavailable Primary Care Provider Unavailabl e Allergies Active Allergy Reactions Criticality Noted Date Comments Penicillins Anaphylaxis High 04/21/2017 Medications lisinopril (PRINIVIL) 20 mg tablet Take 20 mg by mouth daily. Active SERTRALINE HCL (ZOLOFT ORAL) Take 150 mg by mouth daily. Active divalproex (DEPAKOTE) 500 mg delayed release tablet Take 500 mg by mouth 3 times daily. Active traZODone (DESYREL) 100 mg tablet Take 100 mg by mouth 1 time daily as needed for Insomnia. Active Social History Tobacco Use Types Packs/Day Years Used Date Smoking Tobacco: Never Smokeless Tobacco: Current Snuff Alcohol Use Standard Drinks/Week Comments No 0 (1 standard drink = 0.6 oz pur e alcohol) Sex and Gender Information Value Date Recorded Sex Assigned at Not on file Legal Sex Male 5:40 PM CHANNEL CEMENTER INSOLE MACHINE Gender Identity Not on file Sexual Orientation Not on file Last Filed Vital Signs Vital Sign Reading Time Taken Comments Blood Pressure 114/88 04/21/2017 6:47 PM CHANNEL CEMENTER INSOLE MACHINE Pulse - - Temperature 36.7 C (98 F) 04/21/2017 6:47 PM CHANNEL CEMENTER INSOLE MACHINE Respiratory Rate 20 04/21/2017 6:47 PM CHANNEL CEMENTER INSOLE MACHINE Oxygen Saturation 96% 04/21/2017 6:47 PM CHANNEL CEMENTER INSOLE MACHINE Inhaled Oxygen Concentration - - Weight 120.3 kg (265 lb 3.2 oz) 04/21/2017 5:47 PM CHANNEL CEMENTER INSOLE MACHINE Height 170.2 cm (5' 7 ) 04/21/2017 5:47 PM CHANNEL CEMENTER INSOLE MACHINE Body Mass Index 41.54 04/21/2017 5:47 PM CHANNEL CEMENTER INSOLE MACHINE Plan of Treatment Health Maintenance Due Date Last Done Comments DTAP/TDAP/TD VACCINES (1 - Tdap) 1993 HEPATITIS B VACCINES (1 of 3 - 19+ 3-dose series) 11/1992 COLORECTAL SCREENING 2019 Colorectal Cancer Screening 2019 FIT-DNA Q 3 years 2019 FIT/FOBT Q 1 year 2019 Flex Sig/CT Colonography Q 5 years 2019 ZOSTER VACCINE (1 of 2) 02/29/2024 INFLUENZA VACCINE (#1) 2024 Insurance MEDICAID [id number]
--- OUTSIDE RECORDS SUMMARY | 2025-01-10 10:24 | XMS_ITS | Clinical Summary ---
Author Organization [facility] Address [address] Chau: Epic Prelude ADT [place] [address] Care Team Providers [employer] Hazmat Tanker Driver Name Role Phone Kraig Hawk MD Primary Care Provider [phone] Allergies Active Allergy Reactions Criticality Noted Date Comments Penicillins Anaphylaxis High 04/21/2017 Medications sucralfate (CARAFATE) 1 gram tabletIndications :PUD (peptic ulcer disease) Take 1 Tablet (1 Gram) by mouth 3 times daily before meals. 90 Tablet 1 3 Active calcium-cholecalc iferol (OS-JULIA 500+D) 500 mg-5 mcg (200 unit) tablet Take 1 Tablet by mouth daily. Active divalproex (DEPAKOTE) 500 mg delayed release tablet Take 500 mg by mouth 4 times daily. Active traZODone (DESYREL) 150 mg tablet Take 150 mg by mouth nightly as needed for Insomnia. Active albuterol sulfate HFA 90 mcg/actuation aerosol inhalerIndication s:Mild intermittent asthma without complication Take 2 Puffs by inhalation every 6 hours as needed for Wheezing or Shortness of Breath. 18 Gram 2 4 Active atorvastatin (LIPITOR) 80 mg tabletIndications :Chronic diastolic heart failure (CMS/HCC) Take 1 Tablet (80 mg) by mouth daily with supper. 100 Tablet 3 4 Active mupirocin (BACTROBAN) 2 % OintmentIndicatio ns:Folliculitis Apply to affected area 2 times daily. 15 Gram 4 Active spironolactone (ALDACTONE) 50 mg tabletIndications :Chronic diastolic heart failure (CMS/HCC) Take 1 tablet by mouth once daily 100 Tablet 2 5 Active warfarin (COUMADIN) 5 mg tabletIndications :Anticoagulated on warfarin TAKE 1 TABLET BY MOUTH ONCE DAILY OR DIRECTED BY CLINIC 100 Tablet 2 5 Active metoprolol succinate (TOPROL XL) 50 mg Extended Release 24 hour tabletIndications :Chronic diastolic heart failure (CMS/HCC) Take 1 tablet by mouth once daily 100 Tablet 2 5 Active Active Problems Problem Noted Date Diagnosed Date Abnormal INR 03/28/2024 Hyperkalemia 03/28/2024 Wrist sprain, left, initial encounter 03/28/2024 Mild intermittent asthma without complication S/P AVR (aortic valve replacement) 08/27/2023 Pulmonary hypertension 08/27/2023 Chronic diastolic heart failure 08/27/2023 Anticoagulated on warfarin 08/27/2023 Gastroesophageal reflux disease without esophagi tis 08/27/2023 Prediabetes 07/22/2023 Bipolar disorder, unspecified 02/15/2023 Resolved Problems Problem Noted Date Diagnosed Date Resolved Date Acute on chronic heart failu re with preserved ejection fraction 02/15/2023 07/22/2023 Elevated troponin 02/15/2023 08/27/2023 Hypokalemia 02/15/2023 08/27/2023 Hypocalcemia 02/15/2023 08/27/2023 Normal anion gap metabolic acidosis 02/15/2023 08/27/2023 Encounters Date Type Department Care Team Description 12/13/2024 External Device Data [facility] ABSTRACTION Provider, Abstract 12/07/2024 External Device Data [facility] ABSTRACTION Provider, Abstract 11/18/2024 Telephone [facility] [address] [address] Kraig Hawk MD Information 11/09/2024 External Device Data [facility] ABSTRACTION Provider, Abstract 11/08/2024 External Device Data [facility]STRACTION Provider, Abstract 10/25/2024 External Device Data [facility]STRACTION Provider, Abstract 10/25/2024 External Device Data [facility] ABSTRACTION Provider, Abstract 10/12/2024 External Device Data [facility] ABSTRACTION Provider, Abstract from Last 3 Months Immunizations Immunization Administration Dates Next Due INFLUENZA VACCINE QUADRIVALENT 6 MOS UP PF IM INFLUENZA VACCINE TRIVALENT SPLIT VIRUS, (6 MOS UP), 0.5ML (PF), IM 02/01/2024 Influenza Seasonal Unspecified Formulation IM Family History Medical History Relation Name Comments Asthma Father Aspen markssrinath sr. Diabetes Father Aspen markssrinath sr. Heart Disease Father Aspen markssrinath sr. High Cholesterol Father Aspen markssrinath sr. Hypertension Father Aspen markssrinath sr. Diabetes Mother Heart Disease Mother Heart Disease Paternal Grandfather Woo mckeon r Relation Name Status Comments Father Aspen nolasco sr. Alive Mother Alive Paternal Grandfather Woo nolasco Social History Tobacco Use Types Packs/Day Years Used Date Smoking Tobacco: Former Cigarettes 1.5 24 1 [id number] Smokeless Tobacco: Current Chew Tobacco Cessation:Ready to Q uit: No; Counseling Given: Yes Alcohol Use Standard Drinks/Week Comments No 0 (1 standard drink = 0.6 oz pur e alcohol) Education Answer Date Recorded What is the highest level of school you have completed or the highest degree you have received? High school graduate 02/15/2023 Sex and Gender Information Value Date Recorded Sex Assigned at Male 12/15/2022 2:06 AM CDT Legal Sex Male 12:01 PM CHILD AND FAMILY SERVICES SPECIALIST Gender Identity Male 12/15/2022 2:06 AM CDT Sexual Orientation Straight 12/15/2022 2: 06 AM CDT Last Filed Vital Signs Vital Sign Reading Time Taken Comments Blood Pressure 130/80 05/04/2024 12:51 PM CHILD AND FAMILY SERVICES SPECIALIST Pulse 87 05/04/2024 12:51 PM CHILD AND FAMILY SERVICES SPECIALIST Temperature 35.6 C (96.1 F) 05/04/2024 12:51 PM CHILD AND FAMILY SERVICES SPECIALIST Respiratory Rate 22 05/04/2024 12:51 PM CHILD AND FAMILY SERVICES SPECIALIST Oxygen Saturation 97% 05/04/2024 12:51 PM CHILD AND FAMILY SERVICES SPECIALIST Inhaled Oxygen Concentration - - Weight 126.3 kg (278 lb 8 oz) 05/04/2024 12:51 P M CHILD AND FAMILY SERVICES SPECIALIST Height 170.2 cm (5' 7 ) 05/04/2024 12:51 PM CHILD AND FAMILY SERVICES SPECIALIST Body Mass Index 43.62 05/04/2024 12:51 PM CHILD AND FAMILY SERVICES SPECIALIST Plan of Treatment Health Maintenance Due Date Last Done Comments DTAP/TDAP/TD VACCINES (1 - Tdap) 1993 HEPATITIS B VACCINES (1 of 3 - 19+ 3-dose series) 1993 Preventative Visit-Managed Medicaid 1993 COLORECTAL SCREENING 2019 Colorectal Cancer Screening 2019 FIT-DNA Q 3 years 2019 FIT/FOBT Q 1 year 2019 Flex Sig/CT Colonography Q 5 years 2019 ZOSTER VACCINE (1 of 2) 02/29/2024 INFLUENZA VACCINE (#1) 2024 , 01/31/2024, 02/13/2023, Additional history exists Pre-Diabetes and Diabetes Screening 05/04/2027 05/04/2024, 07/22/2023, 09/05/2022, Additional history exists Procedures Procedure Name Priority Date/Time Associated Diagnosis Comments HEMOGLOBIN A1C Routine 05/04/2024 1:30 PM CHILD AND FAMILY SERVICES SPECIALIST Prediabetes from Last 3 Months or Most Recently Relevant to Health Maintenance Results * (ABNORMAL) HEMOGLOBIN A1C (05/04/2024 1:30 PM CHILD AND FAMILY SERVICES SPECIALIST) HEMOGLOBIN A1C 7.3(H) <5.7 % of total Hgb [facility] Comment: For someone without known diabetes, a hemoglobin A1c value of 6.5% or greater indicates that they may have diabetes and this should be confirmed with a follow-up test. For someone with known diabetes, a value <7% indicates that their diabetes is well controlled and a value greater than or equal to 7% indicates suboptimal control. A1c targets should be individualized based on duration of diabetes, age, comorbid conditions, and other considerations. Currently, no consensus exists regarding use of hemoglobin A1c for diagnosis of diabetes for children. ESTIMATED AVERAGE GLUCOSE (MG/DL) 163 mg/dL [facility] ESTIMATED AVERAGE GLUCOSE (MMOL/L) 9.0 mmol/L [facility] Comment: Test Performed at: [facility] [address] [address] Frank Watson MD Blood 05/04/2024 1:30 PM CHILD AND FAMILY SERVICES SPECIALIST 05/05/2024 3:16 AM CHILD AND FAMILY SERVICES SPECIALIST Griselda Haro Jolene INVESTMENT CONSULTANT CHEMISTRY ORDERABLES Fin al Result [facility] [phone] [facility] [address] [address], [place] [address] from Last 3 Months or Most Recently Relevant to Health Maintenance Insurance MEDICAID [place] Advance Directives For more information, please contact: [phone] * Full Code (Latest Code Status on File) Date Activated Date Inactivated Comments 02/16/2023 1:45 AM 02/16/2023 2:26 PM Care Teams [employer] Hazmat Tanker Driver Relationship Specialty Start Date End Date Kraig Hawk MD [address] [place] [id number] PCP - General Family Practice 02/13/23
--- NOTE | 2025-01-10 11:04 | XR_ITS ---
WS: [id number] Portable AP upright chest, 01/10/2025 Clinical Data: sob Comparison: Portable chest, 01/27/2023 Findings: No nodules, masses or effusions are seen. The heart is normal. The pulmonary vascularity is not increased. No pneumonia or pneumothorax is seen. There is a cardiac pacemaker in good position with the generator overlying the left lateral chest and left axilla. Midline sternotomy sutures are present. Monitor leads are on the chest wall. XR/XR chest 1V portable [id number] Impression: Prominent cardiac pacemaker.
--- NOTE | 2025-01-10 11:11 | W.ED.SOB ---
HPI - SOB/Dyspnea General: Chief Complaint: Shortness of Breath/Dyspnea Stated Complaint: sob Time Seen by Provider: 01/10/25 10:22 Source: patient Mode of arrival: ambulatory Limitations: no limitations History of Present Illness: HPI Narrative: Patient is a 49-year-old male with a history of CHF, anticoagulation with warfarin, pacemaker, severe aortic valve stenosis requiring replacement in 2023 here for complaints of dyspnea that has progressively worsened over the past 3 weeks. 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 Patient tells me that he has stage IV congestive heart failure that causes him to have some degree of chronic shortness of breath. Upon arrival, patient is satting at 100% on room air. He is hypotensive. He states his normal blood pressures are usually 80s/60s. He did take his metoprolol this morning. Last echocardiogram performed was back in August and results are listed below: CONCLUSIONS Technically limited quality echocardigoram because of poor ultrasonic windows. LV systolic function is grossly normal RV is grossly hypokinetic Mild mitral regurgitation Aortic valve appears prosthetic. DVI is normal and mean gradienct across prosthesis is mildly elevated. MD elicited complaint: shortness of breath Pertinent past history: congestive heart failure Onset (ago): week(s) Timing: constant Severity: moderate Relieving factors: nothing Known history of: congestive heart failure Associated symptoms: Reports no associated symptoms; Deny abdominal pain, chest congestion, chest pain, dizziness, extremity pain, fever(s), lightheadedness, nausea, palpitations, syncope or vomiting Treatment prior to arrival: none Related Data Home Medications ?Medication ?Instructions ?Recorded ?Confirmed spironolactone 50 mg tablet 50 mg PO DAILY 12/07/23 01/10/25 metoprolol succinate 50 mg 50 mg PO DAILY 01/10/25 01/10/25 tablet,extended release 24 hr Previous Rx's ?Medication ?Instructions ?Recorded warfarin 5 mg tablet 5 mg PO DAILY #90 tabs 10/15/23 warfarin 4 mg tablet 4 mg PO DAILY #90 tabs 08/08/24 Allergies Allergy/AdvReac Type Severity Reaction Status Date / Time Penicillins Allergy Severe ALGY-Anaphy Verified 01/10/25 10:35 laxis Review of Systems Const: Denies: fever(s), chills or body aches Card: Reports: edema (chronic-at baseline); Denies: chest pain, palpitations, irregular heart rhythm, lightheadedness, syncope or pre-syncope Resp: Reports: dyspnea; Denies: productive cough, non-productive cough, wheezing, pain on inspiration or chest congestion GI: Denies: abdominal pain, nausea, vomiting or diarrhea Musc: Denies: neck pain, back pain, extremity pain, extremity swelling, joint pain, joint swelling or joint redness Skin/Breast: Denies: rash Neuro: Denies: headache(s), numbness in extremities, weakness in extremities, sensory changes or dizziness PFSH ED PFSH: Medical History Anticoagulated with warfarin target INR 1.5-2- On-X mechanical valve Pacemaker Medtronic dual chamber 06/30/23 Model: [id number] SN: [id number] CHF (congestive heart failure) Surgical History History of mechanical aortic valve replacement Dr Shelton, 06/16/23- 23mm On-X mechanical valve Family History Father Heart disease Diabetes Mother Diabetes Grandfather Diabetes Heart disease Social History Smoking and tobacco/nicotine status: current every day tobacco/nicotine user (chewing tobacco) smokeless tobacco Smokeless tobacco user: chewing tobacco Alcohol intake: current Alcohol intake frequency: holidays/special occasions only Substance/Drug Use: former Physical Exam Const: COMMON NORMALS: patient oriented x3, no limitations, alert and well nourished GENERAL APPEARANCE: cooperative NUTRITIONAL APPEARANCE: obese ORIENTATION/CONSCIOUSNESS: Yes awake, Yes oriented to person, Yes oriented to place and Yes oriented to time HENMT: COMMON NORMALS: normocephalic and atraumatic HEAD & SCALP: normal to inspection, normocephalic and atraumatic Neck/C-Spine: COMMON NORMALS: no JVD and No carotid bruits Chest: COMMONS NORMALS: normal inspection of the chest and normal palpation of entire chest wall Resp: COMMON NORMALS: normal respiratory effort and clear to auscultation bilaterally EFFORT & INSPECTION: Yes tachypneic AUSCULTATION: clear to auscultation bilaterally OTHER: short/shallow/rapid breathing at times; he is satting normal on RA; his lung sounds are normal Cardio: COMMON NORMALS: no JVD, regular rate and regular rhythm RATE: regular rate RHYTHM: regular rhythm GI: COMMON NORMALS: Normal to inspection, nondistended, normoactive bowel sounds present, Soft to palpation and non-tender PALPATION: Yes Soft to palpation Back/Pelvis: COMMON NORMALS: thoracic and lumbar spine normal to inspection and no thoracic nor lumbar tenderness Extremity: COMMON NORMALS: capillary refill normal and no calf tenderness NARRATIVE EXTREMITY EXAM: symmetrical non-pitting edema to bilateral LEs GENERAL: Yes normal exam except as noted Neuro: COMMON NORMALS: patient oriented x3, moves all extremities, no focal motor deficits and no sensory deficits noted SENSORIUM/ORIENTATION: Yes alert, Yes oriented to person, Yes oriented to place and Yes oriented to time Course ED course: Patient has been extremely rude and irritable thus far during his stay. He has been belligerent to nursing staff. He intentionally ripped out his IV stating it was uncomfortable . There has been a delay in his care and obtaining labs due to this. Consultations: Consultation #1: Dr. Schmitz-accepts hospitalization Consultation #2: Dr. Brown-will consult on patient Vital Signs: Vital signs: Vital Signs Temperature 98.5 F 01/10/25 10:24 Pulse Rate 70 01/10/25 15:24 Respiratory Rate 16 01/10/25 15:24 Blood Pressure 82/52 01/10/25 15:24 Pulse Oximetry 99 01/10/25 15:24 Oxygen Delivery Me thod Room Air 01/10/25 15:24 MDM - SOB/Dyspnea Medical Decision Making Patient is a 49-year-old male here for complaints of worsening dyspnea over the past 3 weeks. He feels this could be related to his known congestive heart failure. He does follow-up with [facility] cardiology for this. He has not noticed any worsening leg swelling or weight gain. He states he has been compliant with medications. On arrival his blood pressures have been soft but he states that is pretty much his normal-his extremities appear well perfused. He is tachypneic at times but satting 100% on room air with normal lung sounds. His CXR showing cardiomegaly but does not appear fluid overloaded. Patient was noted to be anemic. Hemoglobin today is 9.7. Last previous was 03/2023 and hemoglobin was over 17 then. Patient is not complaining of bloody stools or black/tarry stools. He did have a positive hemoccult here in the ED. Patient was resulted to have a critically high INR at 6.76. His chemistry panel with multiple derangements including hyponatremia at 117. KARISSA with BUN/Cr at 70/3.7. BNP significantly elvated at over 13,500. Spoke to hospitalist Dr. Carr for admission. Requested CT abdomen/pelvis. Did not request Vitamin K at this time. Also consulted with Dr. Harris who will follow patient with plan for EGD/colonoscopy once we correct INR. Dr. Melgare aware of patient and will place admit orders. Medical Records I reviewed the patient's medical records. Lab Data I reviewed the patient's lab results. 01/10/25 13:22 01/10/25 13:22 Labs/Radiology: Radiology Impressions Chest X-Ray 01/10/25 11:04 Impression: Prominent cardiac pacemaker. Laboratory Results WBC 1.62 10^3/uL (3.29-11.43) L 01/10/25 13:22 RBC 3.41 10^6/uL (3.85-5.65) L 01/10/25 13:22 Hgb 9.70 g/dL (11.27-16.99) L 01/10/25 13:22 Hct 27.3 % (37-53) L 01/10/25 13:22 MCV 80.1 fl (82-101) L 01/10/25 13:22 MCH 28.4 pg (27-33) 01/10/25 13:22 MCHC 35.5 g/dL (30-55) 01/10/25 13:22 RDW 17.0 % (12.1-15.1) H 01/10/25 13:22 Plt Count 75 10^3/cmm (157-399) L 01/10/25 13:22 MPV 11.0 fL (7.4-10.4) H 01/10/25 13:22 Neut % (Auto) 68.6 % 01/10/25 13:22 Lymph % (Auto) 25.3 % 01/10/25 13:22 [place] % (Auto) 4.3 % 01/10/25 13:22 Eos % (Auto) 0.0 % 01/10/25 13:22 Baso % (Auto) 0.6 % 01/10/25 13:22 Neut # (Auto) 1.11 10^3/uL (1.8-7.7) L 01/10/25 13:22 Lymph # (Auto) 0.4 10^3/uL (0.8-4.8) L 01/10/25 13:22 [place] # (Auto) 0.1 10^3/uL (0.2-0.9) L 01/10/25 13:22 Eos # (Auto) 0.0 10^3/uL (0.0-0.8) 01/10/25 13:22 Baso # (Auto) 0.0 10^3/uL (0.0-0.1) 01/10/25 13:22 Nucleated RBC % (auto) 0 % 01/10/25 13:22 Nucleated RBCs # 0.0 /100WBC 01/10/25 13:22 PT 61.90 SECONDS (12.1-14.9) H 01/10/25 13:22 INR 6.76 (0.8-1.2) H* 01/10/25 13:22 Sodium 117 mmol/L (136-145) L* 01/10/25 13:22 Potassium 5.2 mmol/L (3.5-5.1) H 01/10/25 13:22 Chloride 87 mmol/L (98-107) L 01/10/25 13:22 Carbon Dioxide 14 mmol/L (22-29) L 01/10/25 13:22 Anion Gap 21.2 (5-19) H 01/10/25 13:22 BUN 70 mg/dL (6-20) H 01/10/25 13:22 Creatinine 3.7 mg/dL (0.7-1.2) H 01/10/25 13:22 GFR Calculation 17.5 mL/min (90-130) L 01/10/25 13:22 Glucose 100 mg/dL (65-115) 01/10/25 13:22 Calculated Osmolality 265 mOsm/kg (285-295) L 01/10/25 13:22 Calcium 7.8 mg/dL (8.5-10.5) L 01/10/25 13:22 Total Bilirubin 1.6 mg/dL (0.15-1.2) H 01/10/25 13:22 AST 36 U/L (0-40) 01/10/25 13:22 ALT 24 U/L (0-41) 01/10/25 13:22 Alkaline Phosphatase 313 U/L (40-130) H 01/10/25 13:22 Troponin T Baseline 25 ng/L (0-15) H 01/10/25 13:22 NT-Pro-B Natriuret Pep 74661 pg/mL (0-125) H 01/10/25 13:22 Total Protein 6.5 g/dL (6.6-8.7) L 01/10/25 13:22 Albumin 3.1 g/dL (3.5-5.2) L 01/10/25 13:22 Globulin 3.4 g/dL (1.3-4.6) 01/10/25 13:22 All radiology interpretation(s) finalized by discharge Discharge Plan Discharge Patient Disposition: Admitted As Inpatient Admit Provider: Alea Schmitz Clinical Impression: CHF (congestive heart failure), Supratherapeutic INR, GI (gastrointestinal bleed), Dyspnea, Acute hyponatremia, Acute renal failure Condition: Stable Coding Level of Care Code ED Account Executive for Jose Kim
--- NOTE | 2025-01-10 11:52 | ECG_ITS ---
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 Measurements Intervals [place] Rate: 76 P: -20 [place]: 174 QRS: -82 QRSD: 174 T: 82 QT: 454 QTc: 513 Interpretive Statements ELECTRONIC ATRIAL PACEMAKER ELECTRONIC VENTRICULAR PACEMAKER No previous ECG available for comparison Electronically Signed On 01-14-2025 08:55:35 CDT by Umair Lepe M.D. [email or web address]
--- NOTE | 2025-01-10 12:56 | PC.PHAR ---
Pt states he nolonger takes Depakote 500mg last fill 07/26/24 30ds. Pt states all Warfarin is on hold currently.
[2025-01-10 13:28] LABS: Hematocrit 27.3 % (37-53); Hemoglobin 9.70 g/dL (11.27-16.99); Mean Corpuscular HGB Conc 35.5 g/dL (30-55); Mean Corpuscular Hemoglobin 28.4 pg (27-33); Mean Corpuscular Volume 80.1 fl (82-101); Nucleated Red Blood Cells % 0 %; Platelet Count 75 10^3/cmm (157-399); Red Blood Count 3.41 10^6/uL (3.85-5.65); White Blood Count 1.62 10^3/uL (3.29-11.43)
[2025-01-10 13:44] LABS: Prothrombin Time 61.90 SECONDS (12.1-14.9)
[2025-01-10 13:47] LABS: Troponin(5th) Baseline 25 ng/L (0-15)
--- NOTE | 2025-01-10 13:47 | ECG_ITS ---
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 Measurements Intervals [place] Rate: 69 P: 252 [place]: 194 QRS: -79 QRSD: 158 T: 79 QT: 429 QTc: 461 Interpretive Statements ELECTRONIC ATRIAL PACEMAKER ELECTRONIC VENTRICULAR PACEMAKER Compared to ECG 01/10/2025 11:52:24 No significant changes Electronically Signed On 01-14-2025 09:47:14 CDT by Umair Lepe M.D. [email or web address]
[2025-01-10 14:04] LABS: Alanine Aminotransferase 24 U/L (0-41); Albumin Level 3.1 g/dL (3.5-5.2); Alkaline Phosphatase 313 U/L (40-130); Anion Gap 21.2 (5-19); Aspartate Amino Transferase 36 U/L (0-40); Blood Urea Nitrogen 70 mg/dL (6-20); Calcium 7.8 mg/dL (8.5-10.5); Carbon Dioxide 14 mmol/L (22-29); Chloride 87 mmol/L (98-107); Creatinine Clr Calc Pharmacy 28.7227; Globulin 3.4 g/dL (1.3-4.6); Glucose 100 mg/dL (65-115); NT Pro B Type Natriuretic Pept 13516 pg/mL (0-125); Osmolality Calculated 265 mOsm/kg (285-295); Potassium 5.2 mmol/L (3.5-5.1); Total Protein 6.5 g/dL (6.6-8.7)
[2025-01-10 14:20] LABS: INR 6.76 (0.8-1.2); Sodium 117 mmol/L (136-145)
--- NOTE | 2025-01-10 14:35 | CTR_ITS ---
PROCEDURE INFORMATION: Exam: CT Abdomen And Pelvis Without Contrast Exam date and time: 01/10/2025 2:55 PM Age: 49 years old Clinical indication: Gi bleed PT states rectal bleeding came in for SOB TECHNIQUE: Imaging protocol: Computed tomography of the abdomen and pelvis without contrast. Radiation optimization: All CT scans at this facility use at least one of these dose optimization techniques: automated exposure control; mA and/or kV adjustment per patient size (includes targeted exams where dose is matched to clinical indication); or iterative reconstruction. COMPARISON: CR XR chest 1V portable [id number] 01/10/2025 11:11 AM RADIATION DOSE METRICS: Total DLP (mGy-cm): 960.73 FINDINGS: Lower chest: Heart size normal. Two lead AICD. Previous CABG. Lungs are clear. Liver: 1.57 cm low-density lesion posterolateral dome right lobe of the liver. It has a CT number of-45 1 HU. It is border is not sharp follow-up MRI recommended for further evaluation. Gallbladder and biliary ducts: Gallbladder is normal in size. No wall thickening. No radiopaque calculi. Lumen has CT number of 20.1 HU at its fundus and 31.2 HU near the neck. This may indicate some sludge. No ductal dilatation. Pancreas: Normal. No ductal dilation. . Spleen: Mild splenomegaly. Small calcification maybe granulomatous. . Adrenal glands: Normal. No mass. Kidneys and ureters: 3.7 mm nonobstructing calculus lower left kidney. Also probable renal vascular calcification left kidney. No hydronephrosis. Stomach and bowel: Stomach and small bowel unremarkable. Small diverticulum distal sigmoid colon. Incomplete distension segment of wall thickening proximal sigmoid colon in mid to distal sigmoid. No surrounding stranding. View rectal bleeding correlate symptoms of colitis. Appendix: No evidence of appendicitis. Intraperitoneal space: Unremarkable. No free air. No significant fluid collection. Vasculature: Unremarkable. No abdominal aortic aneurysm. Lymph nodes: Unremarkable. No enlarged lymph nodes. Urinary bladder: Unremarkable as visualized. Reproductive: Prominent prostatic calcification. 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 Soft tissues: Unremarkable. CT/CT abdomen pelvis wo con [id number] IMPRESSION: 1. Two segments of wall thickening sigmoid colon. No surrounding stranding. However in view of rectal bleeding correlate for symptoms of colitis. 2. Low-density lesion right lobe of the liver without sharp margins. CT number of fat. Follow-up MRI recommended with hepatic mass protocol. 3. Probable sludge in the gallbladder. 4. Mild splenomegaly. 5. Nonobstructing left renal calculus. 6. Prominent prostatic calcification. 7. Degenerative changes at L5-S1. 8. Previous CABG. Lead AICD.
--- NOTE | 2025-01-10 14:39 | USCV_ITS ---
Aspen Horvath Age: 49 Gender: M : 1975 Exam Date: 01/10/2025 15:26 Ordering Phys: mAada Parry Technologist: [place] [facility] [place] cp chf BP: 76 / 45 HR: Rhythm: Sinus Technical Quality: Adequate MEASUREMENTS (Male / Female) Normal Values 2D ECHO LV Diastolic Diameter PLAX 4.8 cm 4.2 - 5.9 / 3.9 - 5.3 cm IVS Diastolic Thickness 1.2 cm 0.6 - 1.0 / 0.6 - 0.9 cm IVS Systolic Thickness 1.8 cm LVPW Diastolic Thickness 1.3 cm 0.6 - 1.0 / 0.6 - 0.9 cm LVPW Systolic Thickness 1.7 cm LVOT Diameter 2.0 cm LV Ejection Fraction 2D Teich 68.4 % LV Ejection Fraction MOD 4C 57.2 % LV Ejection Fraction MOD 2C 56.8 % LV Ejection Fraction 2C AL 57.5 % LA Diameter 3.7 cm RA Systolic Volume 4C AL 30.5 ml RA Systolic Volume 4C MOD 28.8 ml Aorta at Sinotubular Diameter 3.0 cm IVC Diameter 1.7 cm M-MODE LA Ao Ratio MM 1.5 AV Cusp Separation MM 2.4 cm FINDINGS Left Ventricle Normal left ventricular size, systolic function and wall thickness, with no regional wall motion abnormalities. Left ventricular ejection fraction is estimated at 55 %. Abnormal septal motion consistent with conduction abnormality. Right Ventricle Right Atrium Left Atrium Mitral Valve Aortic Valve Tricuspid Valve Pulmonic Valve Pericardium Aorta IVC CONCLUSIONS Limited Echo Normal left ventricular size, systolic function and wall thickness, with no regional wall motion abnormalities. Left ventricular ejection fraction is estimated at 55 %. Abnormal septal motion consistent with conduction abnormality. There is no pericardial effusion. There is no pericardial effusion. Right atrial pressure is around 5 mm of mercury. Phill Amos MD (Electronically Signed) Final Date: 10 January 2025 20:41 S
--- NOTE | 2025-01-10 15:12 | PM.CONSULT ---
Providers/Reason For Consult Consulting Physician/Specialty*: Dr. Brown general surgery Reason for Consult*: GI bleed Primary Care Provider: Griselda Fernández History of Present Illness History of Present Illness Aspen Horvath Jr is a 49 year old male whom surgery was consulted for GI bleed. Supratherapeutic on Coumadin. Multiple other medical issues. No melena or hematochezia Medications/Allergies Home Medications ?Medication ?Instructions ?Recorded ?Confirmed ?Last Taken ?Type warfarin 5 mg tablet 5 mg PO DAILY #90 tabs 10/15/23 01/10/25 Unknown Rx spironolactone 50 mg tablet 50 mg PO DAILY 12/07/23 01/10/25 01/10/25 History warfarin 4 mg tablet 4 mg PO DAILY #90 tabs 08/08/24 01/10/25 Unknown Rx metoprolol succinate 50 mg 50 mg PO DAILY 01/10/25 01/10/25 01/10/25 History tablet,extended release 24 hr Allergies Allergy/AdvReac Type Severity Reaction Status Date / Time Penicillins Allergy Severe ALGY-Anaphy Verified 01/10/25 10:35 laxis PFSH Acute PFSH: Medical History Anticoagulated with warfarin target INR 1.5-2- On-X mechanical valve Pacemaker Medtronic dual chamber 06/30/23 Model: [id number] SN: [id number] CHF (congestive heart failure) Surgical History History of mechanical aortic valve replacement Dr Shelton, 06/16/23- 23mm On-X mechanical valve Family History Father Heart disease Diabetes Mother Diabetes Grandfather Diabetes Heart disease Social History Smoking and tobacco/nicotine status: current every day tobacco/nicotine user (chewing tobacco) smokeless tobacco Smokeless tobacco user: chewing tobacco Alcohol intake: current Alcohol intake frequency: holidays/special occasions only Substance/Drug Use: former Vitals/I&O/Wt Last Vital Signs Temp 98.5 F 01/10/25 10:24 Pulse 76 01/10/25 12:46 Resp 20 H 01/10/25 12:46 BP 92/59 01/10/25 12:46 Pulse Ox 100 01/10/25 12:46 O2 Del Method Room Air 01/10/25 12:46 Weight last 48 hrs Weight 250 lb Physical Exam Narrative: Chest: Unlabored breathing room air. No lymphadenopathy. Heart: Regular rate and rhythm. Abdomen: Soft, nontender, nondistended. No masses or lymphadenopathy. Data 01/12/25 03:27 01/12/25 03:27 A&P Assessment and plan 1. GI (gastrointestinal bleed): Plan: 49-year-old male supratherapeutic on Coumadin whom surgery was consulted to rule out GI bleed. Multiple other medical problems. Need INR to trend down to 2 or below to consider endoscopy. Will remain available once medicine clears him for endoscopy. PDMP PDMP Reviewed: Not Reviewed Coding Level of Care Code 91381 Diagnoses GI (gastrointestinal bleed) K92.2
--- NOTE | 2025-01-10 15:36 | PM.HP ---
Providers/Chief Complaint Admitting Physician: Alea Schmitz MD Primary Care Provider: Griselda Fernández Chief Complaint: sob History of Present Illness As per the previous notes and the patient Aspen Horvath Jr is a 49 year old male with a history of CHF, anticoagulation with warfarin, pacemaker, severe aortic valve stenosis requiring replacement in 2023 here for complaints of dyspnea that has progressively worsened over the past 3 weeks. 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 Patient tells me that he has stage IV congestive heart failure that causes him to have some degree of chronic shortness of breath. Upon arrival, patient is satting at 100% on room air. He is hypotensive. He states his normal blood pressures are usually 80s/60s. He did take his metoprolol this morning. Last echocardiogram performed was back in August Show technical difficulty-left ventricular ejection fraction was measured around 60%, He also had myocardial perfusion scan back in October 2022 which showed large perfusion defect in the inferior wall for detailed report refer to the nuclear stress test. The patient came to the hospital due to generalized weakness and shortness of breath that has been ongoing since more than 4 to 5 weeks however has been started worsening since 1 week. The patient also reported having at baseline diagnosis with grade 3 congestive heart failure and he is on anticoagulation with warfarin based on INR. Recent INR was above 6 as per the patient and he was taking warfarin 2.5 mg which he took yesterday night. He did not start any other herbal medication or any other [id number] medications along with his home medications. He reported having on and off cola colored urination that has been ongoing also from months. He reported having recent dizziness and on and off drowsiness that is also they are ongoing since few weeks and also worsened since the week He did not report any recent fevers, recent chest heaviness, wheezing or any lower leg swellings. There is no night sweats recent travels or any sick contacts. Review of Systems General: Reports: 10 or more systems reviewed and unremarkable except in HPI and below Medications/Allergies Home Medications ?Medication ?Instructions ?Recorded ?Confirmed ?Last Taken ?Type warfarin 5 mg tablet 5 mg PO DAILY #90 tabs 10/15/23 01/10/25 Unknown Rx spironolactone 50 mg tablet 50 mg PO DAILY 12/07/23 01/10/2525 History warfarin 4 mg tablet 4 mg PO DAILY #90 tabs 08/08/24 01/10/25 Unknown Rx metoprolol succinate 50 mg 50 mg PO DAILY 01/10/25 01/10/25 01/10/25 History tablet,extended release 24 hr Allergies Allergy/AdvReac Type Severity Reaction Status Date / Time Penicillins Allergy Severe ALGY-Anaphy Verified 01/10/25 10:35 laxis PFSH Acute PFSH: Medical History (Updated 01/10/25 @ 14:59 by CONRAD Borja) Anticoagulated with warfarin target INR 1.5-2- On-X mechanical valve Pacemaker Medtronic dual chamber 06/30/23 Model: [id number] SN: [id number] CHF (congestive heart failure) Surgical History History of mechanical aortic valve replacement Dr Shelton, 06/16/23- 23mm On-X mechanical valve Family History Father Heart disease Diabetes Mother Diabetes Grandfather Diabetes Heart disease Social History Smoking and tobacco/nicotine status: current every day tobacco/nicotine user (chewing tobacco) smokeless tobacco Smokeless tobacco user: chewing tobacco Alcohol intake: current Alcohol intake frequency: holidays/special occasions only Substance/Drug Use: former Vitals/I&O/Wt Last Vital Signs Temp 98.5 F 01/10/25 10:24 Pulse 70 01/10/25 15:24 Resp 16 01/10/25 15:24 BP 82/52 01/10/25 15:24 Pulse Ox 99 01/10/25 15:24 O2 Del Method Room Air 01/10/25 15:24 Weight last 48 hrs Weight 113.398 kg Physical Exam Narrative: General: Alert oriented x3, patient seen mild distress and unable to complete sentences since he gets short of breath and feels tired and fatigued HEENT: Normocephalic, atraumatic, EOMI, breathing on room air Cardio: Regular rate rhythm, normal S1-S2, no murmurs rubs gallops, JVD_unable to assess due to thick neck Respiratory: Good bilateral air entry at upper and lateral zones, however the patient was unable to turn or get up due to generalized pain and fatigue therefore the chest examination is limited GI: Abdomen soft, nontender, nondistended, normoactive bowel sounds present all 4 quadrants, Neuro: No focal neurological deficit Behavior: Appropriate and cooperative Extremities: Mild trace edema Skin: Patient had mild bruising at the right ankle which has been there for few weeks and also some tinge of blood on the gums on exam Data 01/10/25 13:22 01/10/25 13:22 A&P Assessment and plan 1. Acute renal failure: 2. Acute hyponatremia: 3. Dyspnea: 4. GI (gastrointestinal bleed): 5. Supratherapeutic INR: 6. Anticoagulated with warfarin: 7. History of mechanical aortic valve replacement: 8. Pacemaker: 9. Hypertension: 10. CHF (congestive heart failure): Plan: - [employer] Alert oriented and neurological florence stable - Cardiovascular Patient having soft blood pressure with systolic less than 100 however MAP above 65 continue to monitor trend blood pressure Having AICD Hold warfarin due to supratherapeutic INR, Vit K one dose since he is having active bleeding but not life threatening. Echocardiography Cardiac consult Troponin rise was not significant Continue telemetry monitoring - Respiratory resp viral panel since the pt reported having increase sob sepsis work up and doxycycline since pt is penicillin allergic, if sepsis work up negative then for desclation of abx Monitor patient respiratory rate and keep oxygen sats above 94% - gastrointestinal Patient having mild nausea, ondansetron as needed PPI prophylaxis -Renal/electrolytes Patient having renal derangement however there is no baseline to compare Renal ultrasound Urine studies Sodium is 117, likely contributing to decreased oral intake versus heart failure, hypertonic saline bolus and to monitor sodium correction and avoid overcorrection above 6-8 per 24 hours Potassium 5.2, 1 dose of Kayexalate and monitor Monitor renal functions and correction of electrolytes accordingly folleys catheter and adequate I/O - Hematology Patient having thrombocytopenia and anemia anemia work up Monitor CBC no previous baseline Patient found to have stool occult blood positive Surgery on board and for possible scope with INR less than 2 - Endocrinology monitor BG daily - Physical deconditioning: dietitian consult ot/pt evaluation - Skin/musculoskeletal/miscellaneous monitor for any easy bruising or any bleeding VTE: SCD Disposition: currently inpatient management PDMP PDMP Reviewed: Not Reviewed Attestations Medical Necessity Statement*: Aspen Horvath Jr's hospital stay will require greater than 2 midnights for acute on chronic congestive heart failure, acute blood loss due to supratherapeutic INR, KARISSA Time Spent in Patient Care: 16 - 35 minutes (>than 50% of time spent in counselling and/or direct pt care on unit). Critical Care Time: The high probability of a clinically significant, sudden or life threatening deterioration, as referenced in this documentation, required my full and direct attention, intervention and personal management. The critical care time shown is in addition to time spent performing any reported separately billable procedures and includes the following: [x] Data and vital sign review and interpretation [x] Patient assessment, examination and intervention [x] Medication orders and management [x] Patient/Family updates as able [x] Care Coordination and Documentation. Critical Care Time (min): 35 Other Attestations: Patient condition has been discussed at length with the patient/family, I have independently reviewed the chart labs imaging and diagnostics and EKG. the goals of care and code status with the patient/family/NOK/legal industrial sales representative, and documented accordingly. The patient/family has been informed about the current condition and further plan of care. Agreed with the plan of care and understood without any language barrier. This documentation was created by [employer] evaporator repairer software. Every effort was made to ensure accuracy of evaporator repairer. Any obvious errors or omissions should be clarified with the author of the document. Coding Level of Care Code Critical Care >/= 30 minutes Diagnoses Acute renal failure N17.9 Acute hyponatremia E87.1 Dyspnea R06.00 GI (gastrointestinal bleed) K92.2 Supratherapeutic INR R79.1 Anticoagulated with warfarin Z79.01 History of mechanical aortic valve replacement Z95.2 Pacemaker Z95.0 Hypertension I10 CHF (congestive heart failure) I50.9
--- NOTE | 2025-01-10 15:50 | P.CONIM_ITS ---
<Statement entered by Umair Lepe M.D - 01/12/25 11:17> Patient was cared for in conjunction with an advanced practice practitioner.? I reviewed the chart and all pertinent data including imaging, telemetry, and laboratory results.? I discussed the patient in detail with the advanced practice practitioner.? Please see?their note for consult note, testing results and agreed upon plan of care for the patient. Patient needs further evaluation for pancytopenia/ jeri. Does not appear to be primary cardiac etiology of presentation. We will obtain echocardiogram to assess aortic valve. INR is supratherapeutic. Will hold anticoagulation. Providers/Reason For Consult 2 Consulting Physician/Specialty*: Dr Lepe, interventional cardiology Reason for Consult*: CHF decompensation, supratherapeutic INR Requesting Physician: Alea Schmizt MD Attending Physician: Alea Schmitz MD Primary Care Provider: Griselda Fernández History of Present Illness History of Present Illness Aspen Horvath Jr is a 49 year old male with past medical history of hypertension, congestive heart failure (normal LV function, hypokinetic RV), aortic stenosis s/p 23 mm On-X mechanical valve replacement 06/16/2023, Medtronic dual-chamber pacemaker. He presented to the emergency room today due to worsening shortness of breath, patient reports it began 3 to 4 months ago and worsened significantly in the last 3 weeks. Noted hemoglobin 9.7, last labs obtained in 2022 hemoglobin 17. He is anticoagulated with warfarin due to the mechanical valve, review of recent INRs show frequent supratherapeutic INR between 3.24 and 7.4 over the last 2 months. His last INR was on 01/03/2025, dose reduced to 2.5 mg 6 days a week holding warfarin on Thursday. He reports dark-colored urine for the last 2 months. States his blood pressure has been low, 80s systolic typically. He states he has end-stage heart failure. Troponin series: 25-> 23. BNP over 13,000. Creatinine 3.7, BUN 70, potassium 5.2, hemoglobin 9.7, sodium 117. Previous creatinine 2022 was normal. Digital recatal exam performed in the emergency room stool heme positive. Review of Systems 2 Const: Denies: fever(s), chills, change in weight or diaphoresis Eyes: Denies: change in vision ENMT: Denies: epistaxis Card: Denies: chest pain, palpitations, irregular heart rhythm, edema, syncope, pre-syncope, dyspnea on exertion, orthopnea or leg pain with exertion Resp: Denies: productive cough GI: Denies: nausea, vomiting, hematemesis, hematochezia or melena : Denies: hematuria Musc: Denies: extremity swelling Dilshad/Lymph: Denies: easy bruising or easy bleeding Medications/Allergies Home Medications ?Medication ?Instructions ?Recorded ?Confirmed ?Last Taken ?Type warfarin 5 mg tablet 5 mg PO DAILY #90 tabs 10/1401/10/25 Unknown Rx spironolactone 50 mg tablet 50 mg PO DAILY 12/07/2301/10/25 History warfarin 4 mg tablet 4 mg PO DAILY #90 tabs 08/0801/10/25 Unknown Rx metoprolol succinate 50 mg 50 mg PO DAILY 01/10/2501/10/25 History tablet,extended release 24 hr Allergies Allergy/AdvReac Type Severity Reaction Status Date / Time Penicillins Allergy Severe ALGY-Anaphy Verified 01/10/25 10:35 laxis PFSH Acute 2 PFSH: Medical History Anticoagulated with warfarin target INR 1.5-2- On-X mechanical valve Pacemaker Medtronic dual chamber 06/30/23 Model: [id number] SN: [id number] CHF (congestive heart failure) Surgical History History of mechanical aortic valve replacement Dr Shelton, 06/16/23- 23mm On-X mechanical valve Family History Father Heart disease Diabetes Mother Diabetes Grandfather Diabetes Heart disease Social History Smoking and tobacco/nicotine status: current every day tobacco/nicotine user (chewing tobacco) smokeless tobacco Smokeless tobacco user: chewing tobacco Alcohol intake: current Alcohol intake frequency: holidays/special occasions only Substance/Drug Use: former Vitals/I&O/Wt Last Vital Signs Temp 98.5 F 01/10/25 10:24 Pulse 70 01/10/25 15:24 Resp 16 01/10/25 15:24 BP 82/52 01/10/25 15:24 Pulse Ox 99 01/10/25 15:24 O2 Del Method Room Air 01/10/25 15:24 Weight last 48 hrs Weight 250 lb Physical Exam 2 Const: COMMON NORMALS: patient oriented x3 GENERAL APPEARANCE: cooperative ORIENTATION/CONSCIOUSNESS: Yes awake, Yes oriented to person, Yes oriented to place and Yes oriented to time Chest: COMMONS NORMALS: normal inspection of the chest and normal palpation of entire chest wall CHEST: Yes Symmetrical chest wall rise Resp: COMMON NORMALS: No retractions EFFORT & INSPECTION: Yes symmetric chest movement Cardio: COMMON NORMALS: regular rate, regular rhythm, No gallops present (Cardio), No clicks present (Cardio) and No rub (Cardio) RATE: regular rate RHYTHM: regular rhythm PERIPHERAL PULSES: radial pulses present OTHER: Heart tones difficult to hear Extremity: COMMON NORMALS: no pedal edema Neuro: COMMON NORMALS: patient oriented x3 and moves all extremities S ENSORIUM/ORIENTATION: Yes oriented to person, Yes oriented to place and Yes oriented to time Data 01/10/25 13:22 01/10/25 13:22 A&P Assessment and plan 1. Anticoagulated with warfarin: 2. History of mechanical aortic valve replacement: 3. Pacemaker: 4. Hypertension: 5. GI (gastrointestinal bleed): 6. Acute renal failure: 7. CHF (congestive heart failure): 8. Dyspnea: Plan: Review of echocardiogram shows LVEF around 40 to 45%, septal bounce from IVCD. IVC is not dilated, he does not appear volume overloaded, but he has dyspnea with normal oxygen saturation on room air. He is hypotensive in the 80's systolic, will start Levophed infusion to keep MAP above 65 mmHg. Requesting nephrology consultation. Will check lactic acid. Need to interrogate pacemaker. Hold warfarin. No vitamin K has been given. Will repeat echocardiogram with contrast for further evaluation of valves and chambers, limited echo not sufficient for management decisions. PDMP PDMP Reviewed: Not Reviewed Coding Level of Care Code Acute Code for Chg Fwd Diagnoses Anticoagulated with warfarin Z79.01 History of mechanical aortic valve replacement Z95.2 Pacemaker Z95.0 Hypertension I10 GI (gastrointestinal bleed) K92.2 Acute renal failure N17.9 CHF (congestive heart failure) I50.9 Dyspnea R06.00
[2025-01-10 16:13] LABS: Troponin 5 2HR 23.35 ng/L (0-15)
[2025-01-10 16:14] LABS: Glucose Urine UA Negative (Normal); Nitrate Urine Negative (Negative); Specific Gravity, Urine 1.017 (1.005-1.030)
[2025-01-10 16:16] LABS: Troponin 5 2HR Delta -1.65 ABS# (0-10)
--- NOTE | 2025-01-10 16:32 | USR_ITS ---
PROCEDURE INFORMATION: Exam: US Retroperitoneal, Complete, Kidneys and Bladder Exam date and time: 01/10/2025 5:07 PM Age: 49 years old Clinical indication: Abnormal findings; Abnormal lab test; Abnormal function test of other organs/systems; Additional info: Deranged renal parameters TECHNIQUE: Imaging protocol: Real-time ultrasound of the retroperitoneum with image documentation. Complete exam focused on the bilateral kidneys and urinary bladder. COMPARISON: CT abdomen pelvis con [id number] 01/10/2025 2:55 PM FINDINGS: Right kidney: Normal-size. No cortical thinning. There is some increased cortical echogenicity but remains good differentiation renal sinus and cortex. No hydronephrosis.. Left kidney: Normal in size. No cortical thinning. Increased cortical echogenicity but remains good differentiation renal sinus and cortex. No hydronephrosis. Urinary bladder: Unremarkable. Other: Mild splenomegaly. US/US renal BI* [id number] IMPRESSION: 1. Some increased echogenicity of the renal cortex without thinning and remains good differentiation of the cortices from sinuses. This may indicate mild renal medical disease. 2. Splenomegaly.
[2025-01-10 16:37] LABS: Add Urine Microscopic? YES
--- NOTE | 2025-01-10 17:47 | ECG_ITS ---
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 Measurements Intervals [place] Rate: 110 P: -74 ND: 259 QRS: -82 QRSD: 145 T: 84 QT: 357 QTc: 484 Interpretive Statements ELECTRONIC VENTRICULAR PACEMAKER Compared to ECG 01/10/2025 14:39:06 Atrial-paced complex(es) or rhythm no longer present Electronically Signed On 01-14-2025 09:47:06 CDT by Umair Lepe M.D. [email or web address]
[2025-01-10] MEDS: doxycycline 100 MG in sodium chloride 0.9% (plus) 100 ML IV (18:00)
[2025-01-10] MEDS: phytonadione (ADULT) 5 MG in sodium chloride 0.9% 50 ML 151.5 MG IV (18:01)
[2025-01-10 18:34] LABS: Lactic Sepsis W/Reflex 1.5 mmol/L (0.5-2.2)
[2025-01-10 18:35] LABS: Potassium, Radom Urine 40 mmol/L; Urine Random Chloride 20 mmol/L
[2025-01-10 18:40] LABS: Creatinine Urine, Random 163 mg/dL (39-259); Microalbum Creatinine Ratio Ur 147 mg/dL (0-20); Urine Random Sodium 11 mmol/L
--- NOTE | 2025-01-10 18:45 | PM.CONSULT ---
Providers/Reason For Consult Consulting Physician/Specialty*: kommana/Nephrology Reason for Consult*: KARISSA , hYPONATREMIA , METABOLIC ACIDOSIS Requesting Physician: Patient is a 49-year-old male with multiple medical problems including coronary artery disease with CABG, aortic stenosis and status post aortic valve replacement and chronic anticoagulation with warfarin, CHF with ejection fraction of 40 to 45%, Patient presented to the emergency department complaining of progressively worsening shortness of breath, weakness and fatigue. Also reported dark tarry stools as well as dark urine and decreased urine output. Reports poor p.o. intake. In the emergency department he was noted to be tachycardic and hypotensive into the 80s systolic but the blood pressures have improved into the 1 teens now. Lab data is significant for pancytopenia with platelet count of 75,000 white count of 1.6 and hemoglobin of 9.7, sodium was 117 potassium 5.2 CO2 was 14 and creatinine was 3.7. No recent labs available but prior labs in 2022-creatinine was normal. Also noted to have elevated INR 6.7. Attending Physician: Alea Schmitz MD Primary Care Provider: Griselda Fernández History of Present Illness History of Present Illness Aspen Horvath Jr is a 49 year old male Review of Systems Narrative: Negative Medications/Allergies Home Medications ?Medication ?Instructions ?Recorded ?Confirmed ?Last Taken ?Type warfarin 5 mg tablet 5 mg PO DAILY #90 tabs 10/15/23 01/10/25 Unknown Rx spironolactone 50 mg tablet 50 mg PO DAILY 12/07/23 01/10/25 01/10/25 History warfarin 4 mg tablet 4 mg PO DAILY #90 tabs 08/08/24 01/10/25 Unknown Rx metoprolol succinate 50 mg 50 mg PO DAILY 01/10/25 01/10/25 01/10/25 History tablet,extended release 24 hr Allergies Allergy/AdvReac Type Severity Reaction Status Date / Time Penicillins Allergy Severe ALGY-Anaphy Verified 01/10/25 10:35 laxis Current Medications Generic Name Dose Route Start Last Admin Trade Name Freq PRN Reason Stop Dose Admin Sodium Chloride 500 mls @ 30 mls/hr 01/10/25 17:45 01/10/25 18:28 Sodium Chloride 3% IV 01/10/25 21:44 0 mls/hr .[id number] RUFUS Infusion Doxycycline Hyclate 100 mg/ 100 mls @ 100 mls/hr 01/10/25 16:45 01/10/25 18:00 Sodium Chloride IV 100 mls/hr Q12H RUFUS Administration Protocol PFSH Acute PFSH: Medical History Anticoagulated with warfarin target INR 1.5-2- On-X mechanical valve Pacemaker Medtronic dual chamber 06/30/23 Model: [id number] SN: [id number] CHF (congestive heart failure) Surgical History History of mechanical aortic valve replacement Dr Shelton, 06/16/23- 23mm On-X mechanical valve Family History Father Heart disease Diabetes Mother Diabetes Grandfather Diabetes Heart disease Social History Smoking and tobacco/nicotine status: current every day tobacco/nicotine user (chewing tobacco) smokeless tobacco Smokeless tobacco user: chewing tobacco Alcohol intake: current Alcohol intake frequency: holidays/special occasions only Substance/Drug Use: former Vitals/I&O/Wt Last Vital Signs Temp 97.5 F L 01/10/25 17:07 Pulse 112 H 01/10/25 18:12 Resp 28 H 01/10/25 18:12 BP 91/61 01/10/25 18:12 Pulse Ox 100 01/10/25 18:12 O2 Del Method Room Air 01/10/25 18:12 01/10/25 01/10/25 01/10/25 06:59 14:59 22:59 Intake Total 564.5 / 564.5 Balance 564.5 / 564.5 Weight last 48 hrs Weight 99 kg Weight 113.398 kg Physical Exam Narrative: Patient is awake and alert, has mild distress, on room air, Appears ill, PERRLA S1-S2 regular rate and rhythm, tachycardic Lungs decreased breath sounds bilaterally per report Abdomen soft nontender per report Extremities no pedal edema skin : + Petechiae Data 01/10/25 13:22 01/10/25 13:22 Micro: Microbiology 01/10/25 17:50 Blood Culture - Preliminary Blood SPECIMEN COLLECTED 01/10/25 17:53 Blood Culture - Preliminary Blood SPECIMEN COLLECTED A&P Assessment and plan 1. Acute renal failure: 2. Acute hyponatremia: Plan: 1. Acute kidney injury: No recent baseline labs. Etiology of KARISSA, likely hypovolemia in the setting of poor p.o. intake, blood loss . Renal ultrasound with no obstruction. UA noted-has 2+ protein and 3+ blood with microscopic hematuria. - Check urine electrolytes, CPK , UPCR -GN work up ordered - including complements, SWATHI, ANCA, hepatitis panel, SPEP and UPEP, HIV , PS to check for schistocytes -Will place on bicarbonate drip - No acute indication for dialysis currently, but monitor closely - May require kidney biopsy if no improvement with fluid resuscitation 2. Hyponatremia: Likely hypovolemic, urine osmolality and urine sodium pending, will repeat BMP now, and give isotonic fluids, avoid rapid correction and goal correction of 6 to 8 mEq in 24 hours, BMP every 4 hours 2. AG Metabolic acidosis: In the setting of KARISSA , will place on bicarb drip, 3. Hyperkalemia , mild , s/p kayexylate , monitor 4. Pancytopenia , ? etiology , check peripheral smear, LDH, haptoglobin and reticulocyte count. Consider hematology evaluation 5. Mechanical aortic valve replacement, on warfarin chronically, has elevated INR 6. Coronary artery disease with prior CABG 7. History of CHF with ejection fraction 45 to 50%, diuretics on hold Evaluated using audiovisual cart. Time spent 40 minutes. PDMP PDMP Reviewed: Not Reviewed Consult Attestations Medical Necessity Statement: per monae Coding Level of Care Code Acute Code for Chg Fwd Diagnoses Acute renal failure N17.9 Acute hyponatremia E87.1
[2025-01-10 19:34] LABS: Alanine Aminotransferase 22 U/L (0-41); Albumin Level 2.8 g/dL (3.5-5.2); Alkaline Phosphatase 283 U/L (40-130); Anion Gap 20.1 (5-19); Aspartate Amino Transferase 33 U/L (0-40); Blood Urea Nitrogen 73 mg/dL (6-20); Calcium 7.6 mg/dL (8.5-10.5); Carbon Dioxide 14 mmol/L (22-29); Chloride 90 mmol/L (98-107); Creatinine Clr Calc Pharmacy 24.1646; Globulin 3.1 g/dL (1.3-4.6); Glucose 100 mg/dL (65-115); Osmolality Calculated 270 mOsm/kg (285-295); Potassium 5.1 mmol/L (3.5-5.1); Total Protein 5.9 g/dL (6.6-8.7)
[2025-01-10 20:02] LABS: Sodium 119 mmol/L (136-145)
[2025-01-10 20:03] LABS: Glucose Urine UA Negative (Normal); Nitrate Urine Negative (Negative); Specific Gravity, Urine 1.015 (1.005-1.030)
[2025-01-10 20:27] LABS: UPRO/UCREAT Ratio 0.37 mg/mg CR
[2025-01-10 20:33] LABS: Add Urine Microscopic? YES; UA Manual Slide Review YES; UA Slide Review UA Slide Review Perf
[2025-01-10 20:44] LABS: Respiratory Syncytial Virus Ce NEGATIVE (Negative); SARS-CoV-2 PCR NEGATIVE (Negative)
--- NOTE | 2025-01-10 20:51 | PC.NURSE ---
Addendum entered by TOBY Sanchez 01/11/25 03:09: Dr. Mcmahon updated on patients critical labs. Gave telephone orders to increase bicarb drip from 75ml/hr to 125ml/hr. Order edited in JUL. Original Note: Dr. Mcmahon called and gave orders for bicard drip, Sodium to be rechecked at 2300, then q4h. Bicarb order already placed by provider and lab order placed.
[2025-01-10 21:27] LABS: Iron 56 ug/dL (59-158); Total Iron Binding Capacity 222 mcg/dl; Unsaturated Iron Binding 166 ug/dL (112-347); Vitamin B12 1197 pg/mL (232-1245)
[2025-01-10 21:31] LABS: Troponin 5 6HR 23.55 ng/L (0-15)
[2025-01-10 21:32] LABS: Troponin 5 6HR Delta -1.45 ng/L (0-12)
[2025-01-10 21:35] LABS: Chloride 91 mmol/L (98-107); Potassium 4.6 mmol/L (3.5-5.1); Sodium 120 mmol/L (136-145)
[2025-01-10 21:41] LABS: Ferritin 5013 ng/mL (30-400)
[2025-01-10 21:57] LABS: Anion Gap 20.6 (5-19); Blood Urea Nitrogen 74 mg/dL (6-20); Calcium 7.3 mg/dL (8.5-10.5); Carbon Dioxide 13 mmol/L (22-29); Creatinine Clr Calc Pharmacy 25.4038; Glucose 123 mg/dL (65-115); Osmolality Calculated 273 mOsm/kg (285-295)
[2025-01-10 23:57] LABS: Anion Gap 18.5 (5-19); Blood Urea Nitrogen 74 mg/dL (6-20); Calcium 7.5 mg/dL (8.5-10.5); Carbon Dioxide 15 mmol/L (22-29); Chloride 91 mmol/L (98-107); Creatinine Clr Calc Pharmacy 24.1646; Glucose 125 mg/dL (65-115); Osmolality Calculated 273 mOsm/kg (285-295); Potassium 4.5 mmol/L (3.5-5.1); Sodium 120 mmol/L (136-145)
[2025-01-10] MEDS: HYDROcodone-acetaminophen 5-325 mg Tablet 1 TAB PO (23:59)
[2025-01-11] VITALS (95 sets, daily range): BP systolic 76–104; BP diastolic 47–76; PULSE 94–121; RESP 17–34; TEMP 36.8–36.9; O2SAT 81–100
[2025-01-11 02:26] LABS: Hematocrit 22.8 % (37-53); Hemoglobin 8.10 g/dL (11.27-16.99); Mean Corpuscular HGB Conc 35.5 g/dL (30-55); Mean Corpuscular Hemoglobin 27.9 pg (27-33); Mean Corpuscular Volume 78.6 fl (82-101); Nucleated Red Blood Cells % 0 %; Platelet Count 64 10^3/cmm (157-399); Red Blood Count 2.90 10^6/uL (3.85-5.65); White Blood Count 1.23 10^3/uL (3.29-11.43)
[2025-01-11 02:37] LABS: INR 1.39 (0.8-1.2); Prothrombin Time 18.00 SECONDS (12.1-14.9)
[2025-01-11 02:41] LABS: Magnesium 2.2 mg/dL (1.7-2.3)
[2025-01-11 02:42] LABS: Anion Gap 17.4 (5-19); Blood Urea Nitrogen 72 mg/dL (6-20); Calcium 7.3 mg/dL (8.5-10.5); Carbon Dioxide 15 mmol/L (22-29); Chloride 91 mmol/L (98-107); Creatinine Clr Calc Pharmacy 25.4038; Glucose 133 mg/dL (65-115); Osmolality Calculated 271 mOsm/kg (285-295); Potassium 4.4 mmol/L (3.5-5.1)
[2025-01-11 02:56] LABS: Sodium 119 mmol/L (136-145)
[2025-01-11 04:24] LABS: LAB Peripheral Smear Sent for Review
[2025-01-11] MEDS: doxycycline 100 MG in sodium chloride 0.9% (plus) 100 ML IV ×2 (04:52→16:25)
[2025-01-11 06:31] LABS: Anion Gap 16.4 (5-19); Blood Urea Nitrogen 76 mg/dL (6-20); Calcium 7.2 mg/dL (8.5-10.5); Carbon Dioxide 19 mmol/L (22-29); Chloride 90 mmol/L (98-107); Creatinine Clr Calc Pharmacy 24.2037; Glucose 136 mg/dL (65-115); Osmolality Calculated 277 mOsm/kg (285-295); Potassium 4.4 mmol/L (3.5-5.1); Sodium 121 mmol/L (136-145)
[2025-01-11] MEDS: pantoprazole 40 mg SDV IVP (08:30)
[2025-01-11 11:00] LABS: Anion Gap 19.2 (5-19); Blood Urea Nitrogen 73 mg/dL (6-20); Calcium 7.4 mg/dL (8.5-10.5); Carbon Dioxide 17 mmol/L (22-29); Chloride 89 mmol/L (98-107); Creatinine Clr Calc Pharmacy 24.2037; Glucose 153 mg/dL (65-115); Osmolality Calculated 277 mOsm/kg (285-295); Potassium 4.2 mmol/L (3.5-5.1); Sodium 121 mmol/L (136-145)
--- NOTE | 2025-01-11 11:05 | P.PN_ITS ---
Subjective 2 Subjective: he feels better today UOP 600 ml Medications: Reviewed: Yes Vitals/I&O/Wt Last Vital Signs Temp 98.5 F 01/11/25 07:15 Pulse 109 H 01/11/25 10:00 Resp 25 H 01/11/25 10:00 BP 86/58 01/11/25 10:00 Pulse Ox 100 01/11/25 10:00 O2 Del Method Room Air 01/11/25 10:00 01/10/25 01/11/25 01/11/25 22:59 06:59 14:59 Intake Total 664.5 / 664.5 555 / 1219.5 1221.25 / 1221.25 Output Total 600 / 600 Balance 664.5 / 664.5 -45 / 619.5 1221.25 / 1221.25 Weight last 48 hrs Weight 99.32 kg Weight 99 kg Weight 113.398 kg Physical Exam 2 Narrative: Patient is awake and alert, has mild distress, on room air, Appears ill, PERRLA S1-S2 regular rate and rhythm, tachycardic Lungs decreased breath sounds bilaterally per report Abdomen soft nontender per report Extremities no pedal edema skin : + Petechiae Urinary Catheter Management: Aguirre: Cath Placed During This Visit: yes Reason for Continuing Indwelling Catheter: Accurate Measurement of Urinary Output in Critically Ill Patients Urinary Catheter Date of Insertion: 01/10/25 Urinary Catheter Time of Insertion: 19:40 Data 01/11/25 02:20 01/11/25 10:30 Micro: Microbiology 01/10/25 17:50 Blood Culture - Preliminary Blood SPECIMEN COLLECTED 01/10/25 17:53 Blood Culture - Preliminary Blood SPECIMEN COLLECTED A&P Assessment and plan 1. Acute renal failure: 2. Acute hyponatremia: Plan: 1. Acute kidney injury: No recent baseline labs. Etiology of KARISSA, likely hypovolemia in the setting of poor p.o. intake, blood loss . Renal ultrasound with no obstruction. UA noted-has 2+ protein and 3+ blood with microscopic hematuria. - U na 11 --> c/wintravascular volume depletion -GN work up ordered - including complements, SWATHI, ANCA, hepatitis panel, SPEP and UPEP, HIV , Pheripheral smear S to check for schistocytes - on bicarbonate drip - No acute indication for dialysis currently, but monitor closely - May require kidney biopsy if no improvement once platelet count improved 2. Hyponatremia: Likely hypovolemic, urine osmolality pending , U na low , ,on bicarbonate drip , avoid rapid correction and goal correction of 6 to 8 mEq in 24 hours, BMP every 4 hours 2. AG Metabolic acidosis: In the setting of KARISSA , on bicarb drip, 3. Hyperkalemia , mild , s/p kayexylate , monitor 4. Pancytopenia , ? etiology , check peripheral smear, LDH, haptoglobin and reticulocyte count. Consider hematology evaluation 5. Mechanical aortic valve replacement, on warfarin chronically, has elevated INR 6. Coronary artery disease with prior CABG 7. History of CHF with ejection fraction 45 to 50%, diuretics on hold pt awaiting for transfer for higher level care Evaluated using audiovisual cart. Time spent 40 minutes. PDMP PDMP Reviewed: Not Reviewed Attestations 2 Medical Necessity Statement*: per emdiicne Coding Level of Care Code Acute Code for Chg Fwd Diagnoses Acute renal failure N17.9 Acute hyponatremia E87.1
--- NOTE | 2025-01-11 12:18 | P.PN_ITS ---
<Statement entered by Umair Lepe M.D - 01/12/25 11:02> Patient was cared for in conjunction with an advanced practice practitioner.? I reviewed the chart and all pertinent data including imaging, telemetry, and laboratory results.? I discussed the patient in detail with the advanced practice practitioner.? Please see?their note for progress note, testing results and agreed upon plan of care for the patient. Continue holding anticoagulation. INR has normalized after receiving vitamin K. Has been pancytopenia. Recommend transferring to center with hematology service availability. Will need resumption of anticoagulation likely within next 1 to 2 days if no absolute contraindication but has to be done after consultation with hematology and assessment of underlying etiology of pancytopenia. Should not stay off of hypercoagulation for long period of time secondary to mechanical aortic valve. Subjective 2 Subjective: No events noted overnight. He remains critically ill with increased shortness of breath. Troponin series stayed flat: 25-> 23-> 23. White blood cell count 1.2 this morning, INR decreased to 1.39 from 6.7 yesterday. It does not appear he received any vitamin K or FFP. He has made 600 mL urine overnight, creatinine 4.1 this morning, BUN 76. Hemoglobin decreased to 8.1. Sodium increased to 121 after hypertonic saline solution. He has been on bicarb infusion. He does not have any chest pain. He appears to be in sinus tachycardia, heart rate 105-114 bpm. Pacemaker interrogation not completed overnight, will be done this morning. Vitals/I&O/Wt Last Vital Signs Temp 98.5 F 01/11/25 07:15 Pulse 109 H 01/11/25 10:00 Resp 25 H 01/11/25 10:00 BP 86/58 01/11/25 10:00 Pulse Ox 100 01/11/25 10:00 O2 Del Method Room Air 01/11/25 10:00 01/10/25 01/11/25 01/11/25 22:59 06:59 14:59 Intake Total 664.5 / 1219.5 555 / 1219.5 1221.25 / 1221.25 Output Total 600 / 600 Balance 664.5 / 619.5 -45 / 619.5 1221.25 / 1221.25 Weight last 48 hrs Weight 218 lb 15.41 oz Weight 218 lb 4.122 oz Weight 250 lb Physical Exam 2 Const: COMMON NORMALS: no acute distress and patient oriented x3 GENERAL APPEARANCE: cooperative and comfortable ORIENTATION/CONSCIOUSNESS: Yes awake, Yes oriented to person, Yes oriented to place and Yes oriented to time Chest: COMMONS NORMALS: normal inspection of the chest and normal palpation of entire chest wall CHEST: Yes Symmetrical chest wall rise Resp: COMMON NORMALS: normal respiratory effort, No retractions and No use of accessory muscles EFFORT & INSPECTION: Yes symmetric chest movement A USCULTATION: crackles (scattered) Laterality: bilateral and posterior Cardio: COMMON NORMALS: regular rhythm, S1 normal heart sound present, S2 normal heart sound present, No gallops present (Cardio), No clicks present (Cardio), No murmurs present (Cardio) and No rub (Cardio) RATE: tachycardic RHYTHM: regular rhythm HEART SOUNDS: S1 normal heart sound present and S2 normal heart sound present PERIPHERAL PULSES: radial pulses present Extremity: COMMON NORMALS: no pedal edema Neuro: COMMON NORMALS: patient oriented x3 and moves all extremities S ENSORIUM/ORIENTATION: Yes oriented to person, Yes oriented to place and Yes oriented to time Urinary Catheter Management: Aguirre: Cath Placed During This Visit: yes Reason for Continuing Indwelling Catheter: Accurate Measurement of Urinary Output in Critically Ill Patients Urinary Catheter Date of Insertion: 01/10/25 Urinary Catheter Time of Insertion: 19:40 Data 01/11/25 02:20 01/11/25 10:30 Micro: Microbiology 01/10/25 17:50 Blood Culture - Preliminary Blood SPECIMEN COLLECTED 01/10/25 17:53 Blood Culture - Preliminary Blood SPECIMEN COLLECTED A&P Assessment and plan 1. Supratherapeutic INR: 2. Anticoagulated with warfarin: 3. History of mechanical aortic valve replacement: 4. Pacemaker: 5. CHF (congestive heart failure): 6. GI (gastrointestinal bleed): 7. Acute renal failure: 8. Dyspnea: Plan: No definitive cause for pancytopenia, he was seen by silk screen layout drafter this morning with adjustments made to bicarbonate infusion. He is not on any anticoagulation due to bleeding, however he will need to start soon with the On- X AVR, would recommend heparin, INR goal would be 3. It is our recommendation to transfer patient to a higher level of care as he requires GI, hematology, cardiology, nephrology. No hemodialysis is planned at this time, creatinine 4.1. Shortness of breath is stable, no chest pain. He should have Levophed infusion for systolic BP less than 90, blood pressures currently ranging around 80 over 50s, although MAP is greater than 65 concern for hypoperfusion. PDMP PDMP Reviewed: Not Reviewed Attestations 2 Medical Necessity Statement*: Probable transfer today Coding Level of Care Code Acute Code for Chg Fwd Diagnoses Supratherapeutic INR R79.1 Anticoagulated with warfarin Z79.01 History of mechanical aortic valve replacement Z95.2 Pacemaker Z95.0 CHF (congestive heart failure) I50.9 GI (gastrointestinal bleed) K92.2 Acute renal failure N17.9 Dyspnea R06.00
[2025-01-11] MEDS: HYDROcodone-acetaminophen 5-325 mg Tablet 1 TAB PO ×2 (13:57→23:25)
--- NOTE | 2025-01-11 14:30 | P.TS_ITS ---
Transfer Summary Providers Date of Admission: 01/10/25 15:21 Date of Discharge/Transfer: 01/11/25 Attending Provider at Admission: Alea Schmitz MD Attending Provider at Transfer: Alea Schmitz MD Primary Care Provider: Griselda Fernández Transfer Plans: Anticipated date of transfer: 01/11/25 . Diagnoses at Discharge Discharge Diagnosis 1. Supratherapeutic INR: 2. Anticoagulated with warfarin: 3. History of mechanical aortic valve replacement: 4. Pacemaker: 5. CHF (congestive heart failure): 6. GI (gastrointestinal bleed): 7. Acute renal failure: 8. Dyspnea: Reason for Visit Reason for Visit sob Brief History: As per the previous notes and the patient Aspen Horvath Jr is a 49 year old male with a history of CHF, anticoagulation with warfarin, pacemaker, severe aortic valve stenosis requiring replacement in 2023 here for complaints of dyspnea that has progressively worsened over the past 3 weeks. Patient reportedly had an appointment with his insert cutter today but decided to come to the emergency department instead. Patient tells me that he has stage IV congestive heart failure that causes him to have some degree of chronic shortness of breath. Upon arrival, patient is satting at 100% on room air. He is hypotensive. He states his normal blood pressures are usually 80s/60s. He did take his metoprolol this morning. Last echocardiogram performed was back in August Show technical difficulty-left ventricular ejection fraction was measured around 60%, He also had myocardial perfusion scan back in October 2022 which showed large perfusion defect in the inferior wall for detailed report refer to the nuclear stress test. The patient came to the hospital due to generalized weakness and shortness of breath that has been ongoing since more than 4 to 5 weeks however has been started worsening since 1 week. The patient also reported having at baseline diagnosis with grade 3 congestive heart failure and he is on anticoagulation with warfarin based on INR. Recent INR was above 6 as per the patient and he was taking warfarin 2.5 mg which he took yesterday night. He did not start any other herbal medication or any other ovxm-cec-susfrcj medications along with his home medications. He reported having on and off cola colored urination that has been ongoing also from months. He reported having recent dizziness and on and off drowsiness that is also they are ongoing since few weeks and also worsened since the week . Hospital Course Hospital Course The patient was currently following with the cardiology for his warfarin dose adjustment according to INR. He came to the hospital and further workup revealed that the patient was having leukopenia, anemia guaiac positive possible GI loss, neutropenia, severe thrombocytopenia with drop of around 60,000 increased INR supratherapeutic with value of 6 and was given vitamin K 1 dose since she was having episode of bleeding and anemia. Class III KARISSA with renal parameter derangement reaching up to 4.1. Severe hyponatremia of 117 and was started on hypertonic saline with frequent monitoring. Cardiology and nephrology were consulted. Sepsis workup were sent however the patient was more or less having some chronic condition or TTP or some other possible autoimmune condition that needs further higher level of care. Based upon his recent mild shortness of breath and mild cough without phlegm possible community-acquired pneumonia was and differentials and started on doxycycline twice daily since he was having anaphylaxis to penicillin. Blood cultures and urine cultures till date negative preliminary. The patient blood pressure always runs in the lower side systolic but MAP remains above 65. He needed 1-2 mics of nor epi as needed to keep the blood pressure stable. He did not report any overt signs of bleeding. No B symptoms like night sweats fever or weight loss. Or any skin rash. Autoimmune workup was sent and is pending. After thorough discussion with the clam dredge boat captain insert cutter in the patient it was decided upon for a transfer of this patient to higher level of care since the patient might having differentials of TTP, requiring hematology oncology, anemia that is secondary to GI loss needing GI services severe plasty KARISSA that needs inpatient nephrology management. Patient warfarin is held in the light of ongoing anemia, thrombocytopenia. However patient will require anticoagulation since he has aortic valve replaced and he is at risk of valve failure and his complication. Therefore considering his condition the patient transfer process was initiated and accepted at [facility] by Dr. Seo. Patient also informed about his plan of care and agreed for the transfer without any language barrier. All questions and concerns were addressed accordingly Physical Exam Narrative: General: Alert oriented x3, patient seen mild distress and unable to complete sentences since he gets short of breath and feels tired and fatigued HEENT: Normocephalic, atraumatic, EOMI, breathing on room air Cardio: Regular rate rhythm, normal S1-S2, no murmurs rubs gallops, JVD_unable to assess due to thick neck Respiratory: Bilateral equal air entry with normal vesicular breathing, no wheezes or any crackles appreciated GI: Abdomen soft, nontender, nondistended, normoactive bowel sounds present all 4 quadrants, Neuro: No focal neurological deficit Behavior: Appropriate and cooperative Extremities: Mild trace edema Skin: Mild right ankle bruising however no other hematoma or joint swellings or any skin rash Urinary Catheter Management: Aguirre: Cath Placed During This Visit: yes Reason for Continuing Indwelling Catheter: Accurate Measurement of Urinary Output in Critically Ill Patients Urinary Catheter Date of Insertion: 01/10/25 Urinary Catheter Time of Insertion: 19:40 TS Data Studies Completed and Pending Pending at discharge Category Date Time Status SWATHI SCREEN [SWATHI Profile Rheumatology] Routine Lab 01/10/25 19:41 Received ANCA [Anti-Neutrophil Cytoplasmic AB] Routine Lab 01/10/25 19:41 Received Blood Culture Stat Lab 01/10/25 17:50 Results Osmolality Urine Stat Lab 01/10/25 15:40 Received Respiratory Panel 2 Routine Lab 01/10/25 16:32 Ordered Serum Protien Electrophoresis [Total Protein Lab 01/10/25 19:41 Received Electrophoresis] Routine Sputum Culture and Gram Stain Stat Lab 01/10/25 15:31 Uncollected Urine Culture Routine Lab 01/10/25 19:50 Received Urine Culture Stat Lab 01/10/25 15:40 Received Urine Protein Electrop Random Routine Lab 01/10/25 19:50 Received Completed Studies During Hospitalization Category Date Time Status CT abdomen pelvis wo con [id number] Stat Cat Scan 01/10/25 14:35 Completed XR chest 1V portable [id number] Urgent Exams 01/10/25 11:04 Completed CV. echo complete* [id number] Stat Ultrasound 01/11/25 17:24 Completed CV. echo limited [id number] Stat Ultrasound 01/10/25 14:39 Completed US renal BI* [id number] Routine Ultrasound 01/10/25 16:32 Completed Laboratory Last Values WBC 1.23 10^3/uL (3.29-11.43) L 01/11/25 02:20 RBC 2.90 10^6/uL (3.85-5.65) L 01/11/25 02:20 Hgb 8.10 g/dL (11.27-16.99) L 01/11/25 02:20 Hct 22.8 % (37-53) L 01/11/25 02:20 MCV 78.6 fl (82-101) L 01/11/25 02:20 MCH 27.9 pg (27-33) 01/11/25 02:20 MCHC 35.5 g/dL (30-55) 01/11/25 02:20 RDW 16.7 % (12.1-15.1) H 01/11/25 02:20 Plt Count 64 10^3/cmm (157-399) L 01/11/25 02:20 MPV 10.6 fL (7.4-10.4) H 01/11/25 02:20 Neut % (Auto) 76.4 % 01/11/25 02:20 Lymph % (Auto) 17.9 % 01/11/25 02:20 [place] % (Auto) 4.9 % 01/11/25 02:20 Eos % (Auto) 0.0 % 01/11/25 02:20 Baso % (Auto) 0.0 % 01/11/25 02:20 Reticulocyte % (Auto) 3.5 % (0.5-2.0) H 01/10/25 18:38 Neut # (Auto) 0.94 10^3/uL (1.8-7.7) L* 01/11/25 02:20 Lymph # (Auto) 0.2 10^3/uL (0.8-4.8) L 01/11/25 02:20 [place] # (Auto) 0.1 10^3/uL (0.2-0.9) L 01/11/25 02:20 Eos # (Auto) 0.0 10^3/uL (0.0-0.8) 01/11/25 02:20 Baso # (Auto) 0.0 10^3/uL (0.0-0.1) 01/11/25 02:20 Nucleated RBC % (auto) 0 % 01/11/25 02:20 Nucleated RBCs # 0.0 /100WBC 01/11/25 02:20 Peripher Smr Path Cons Sent for review 01/10/25 13:22 Haptoglobin 10.0 mg/L (30-200) L 01/10/25 20:47 PT 18.00 SECONDS (12.1-14.9) H D 01/11/25 02:20 INR 1.39 (0.8-1.2) H 01/11/25 02:20 Sodium 121 mmol/L (136-145) L 01/11/25 10:30 Potassium 4.2 mmol/L (3.5-5.1) 01/11/25 10:30 Chloride 89 mmol/L (98-107) L 01/11/25 10:30 Carbon Dioxide 17 mmol/L (22-29) L 01/11/25 10:30 Anion Gap 19.2 (5-19) H 01/11/25 10:30 BUN 73 mg/dL (6-20) H 01/11/25 10:30 Creatinine 4.1 mg/dL (0.7-1.2) H 01/11/25 10:30 GFR Calculation 15.5 mL/min (90-130) L 01/11/25 10:30 Glucose 153 mg/dL (65-115) H 01/11/25 10:30 POC Glucose 143 mg/dL (70-110) H 01/11/25 07:20 Calculated Osmolality 277 mOsm/kg (285-295) L 01/11/25 10:30 Lactic Acid 1.5 mmol/L (0.5-2.2) 01/10/25 17:53 Calcium 7.4 mg/dL (8.5-10.5) L 01/11/25 10:30 Magnesium 2.2 mg/dL (1.7-2.3) 01/11/25 02:20 Iron 56 ug/dL (59-158) L 01/10/25 13:22 TIBC 222 mcg/dl 01/10/25 13:22 % Saturation 25.2 % (20-50) 01/10/25 13:22 Unsat Iron Binding 166 ug/dL (112-347) 01/10/25 13:22 Ferritin 5013 ng/mL (30-400) H 01/10/25 13:22 Total Bilirubin 1.4 mg/dL (0.15-1.2) H 01/10/25 18:38 AST 33 U/L (0-40) 01/10/25 18:38 ALT 22 U/L (0-41) 01/10/25 18:38 Alkaline Phosphatase 283 U/L (40-130) H 01/10/25 18:38 Lactate Dehydrogenase 329 U/L (135-225) H 01/10/25 20:47 Creatine Kinase 20 U/L (39-308) L 01/10/25 20:47 Troponin T Baseline 25 ng/L (0-15) H 01/10/25 13:22 Troponin T 120 Minute 23.35 ng/L (0-15) H 01/10/25 15:33 Delta Troponin T -1.65 ABS# (0-10) L 01/10/25 15:33 Troponin T Hi Sens 6Hr 23.55 ng/L (0-15) H 01/10/25 20:47 Troponin T Hi Sens 6Hr Delta -1.45 ng/L (0-12) L 01/10/25 20:47 NT-Pro-B Natriuret Pep 07294 pg/mL (0-125) H 01/10/25 13:22 Total Protein 5.9 g/dL (6.6-8.7) L 01/10/25 18:38 Albumin 2.8 g/dL (3.5-5.2) L 01/10/25 18:38 Globulin 3.1 g/dL (1.3-4.6) 01/10/25 18:38 Vitamin B12 1197 pg/mL (232-1245) 01/10/25 13:22 Urine Color [place] (Yellow) A 01/10/25 19:50 Urine Appearance Cloudy (CLEAR) A 01/10/25 19:50 Urine pH 5.0 (5-7) 01/10/25 19:50 Ur Specific [place] 1.015 (1.005-1.030) 01/10/25 19:50 Urine Protein 2+ (Negative) A 01/10/25 19:50 Urine Glucose (UA) Negative (Normal) 01/10/25 19:50 Urine Ketones Trace (Negative) 01/10/25 19:50 Urine Blood 3+ (Negative) A 01/10/25 19:50 Urine Nitrate Negative (Negative) 01/10/25 19:50 Urine Bilirubin Negative (Negative) 01/10/25 19:50 Urine Urobilinogen 1.0 mg/dL (Negative) 01/10/25 19:50 Ur Leukocyte Esterase Trace (Negative) A 01/10/25 19:50 Urine RBC 80-100 /hpf (0-2) H 01/10/25 19:50 Urine WBC 10-15 /hpf (0-5) H 01/10/25 19:50 Ur Squamous Epith Cells 0-4 /hpf (0-5) H 01/10/25 19:50 Amorphous Sediment Not Reportable 01/10/25 19:50 Urine Bacteria 1+ /hpf (NONE) H 01/10/25 19:50 Hyaline Casts None /lpf 01/10/25 19:50 Fine Granular Casts 5-10 /lpf H 01/10/25 15:40 Urine Mucus Trace /hpf 01/10/25 15:40 Urine Yeast 1+ /hpf H 01/10/25 19:50 Ur Random Microalbumin 24 ug/dL (0-20) H 01/10/25 15:40 U Random Total Protein 45 mg/dL 01/10/25 19:50 Ur Random Sodium 11 mmol/L 01/10/25 15:40 Ur Random Potassium 40 mmol/L 01/10/25 15:40 Ur Random Chloride 20 mmol/L 01/10/25 15:40 Urine Creatinine 123 mg/dL (39-259) 01/10/25 19:50 Urine Creatinine Cancelled 01/10/25 19:50 Microalb/Creat Ratio 147 mg/dL (0-20) H 01/10/25 15:40 Protein/Creatinin Ratio 0.37 mg/mg CR 01/10/25 19:50 Complement C4 6 mg/dL (10-40) L 01/10/25 20:47 Influenza A (PCR) Negative (Negative) 01/10/25 17:55 Influenza Type B (PCR) Negative (Negative) 01/10/25 17:55 RSV (PCR) Negative (Negative) 01/10/25 17:55 SARS-CoV-2 (PCR) Negative (Negative) 01/10/25 17:55 Blood Type O Positive 01/10/25 15:33 Rho(D) Type Rh positive 01/10/25 15:33 Antibody Screen Negative 01/10/25 15:33 Radiology Impressions Chest X-Ray 01/10/25 11:04 Impression: Prominent cardiac pacemaker. Abdomen/Pelvis CT 01/10/25 14:35 IMPRESSION: 1. Two segments of wall thickening sigmoid colon. No surrounding stranding. However in view of rectal bleeding correlate for symptoms of colitis. 2. Low-density lesion right lobe of the liver without sharp margins. CT number of fat. Follow-up MRI recommended with hepatic mass protocol. 3. Probable sludge in the gallbladder. 4. Mild splenomegaly. 5. Nonobstructing left renal calculus. 6. Prominent prostatic calcification. 7. Degenerative changes at L5-S1. 8. Previous CABG. Lead AICD. Renal Ultrasound 01/10/25 16:32 IMPRESSION: 1. Some increased echogenicity of the renal cortex without thinning and remains good differentiation of the cortices from sinuses. This may indicate mild renal medical disease. 2. Splenomegaly. Recent Clincial Data Last Vital Signs Temp 98.5 F 01/11/25 07:15 Pulse 109 H 01/11/25 10:00 Resp 25 H 01/11/25 10:00 BP 86/58 01/11/25 10:00 Pulse Ox 100 01/11/25 10:00 O2 Del Method Room Air 01/11/25 10:00 Vital Signs Temp Pulse Resp BP Pulse Ox O2 Del Method 01/11/25 10:00 109 H 25 H 86/58 100 Room Air 01/11/25 09:45 110 H 31 H 86/55 98 01/11/25 09:30 96 19 H 92/60 97 01/11/25 09:15 117 H 25 H 79/59 91 01/11/25 09:00 119 H 17 89/61 91 01/11/25 08:45 103 H 19 H 88/63 99 01/11/25 08:30 114 H 17 93/68 96 Room Air 01/11/25 08:15 102 H 24 H 83/64 93 01/11/25 08:00 98 25 H 89/66 100 01/11/25 07:45 99 33 H 98/67 94 01/11/25 07:30 98 30 H 89/68 100 01/11/25 07:15 98.5 F 98 24 H 97/62 100 Room Air 01/11/25 07:00 99 21 H 89/69 99 01/11/25 06:45 98 21 H 89/66 99 01/11/25 06:30 98 29 H 100/64 100 01/11/25 06:15 98 26 H 84/61 93 01/11/25 06:00 95 26 H 84/65 100 01/11/25 05:45 97 24 H 90/60 98 01/11/25 05:31 98.2 F 01/11/25 05:30 95 24 H 93/64 97 01/11/25 05:26 96 01/11/25 05:15 96 20 H 97/70 99 01/11/25 05:00 96 19 H 98/73 99 01/11/25 04:45 102 H 22 H 88/66 98 01/11/25 04:30 95 24 H 90/62 97 01/11/25 04:15 99 27 H 83/62 96 01/11/25 04:00 101 H 24 H 82/56 96 01/11/25 03:45 102 H 23 H 82/56 95 01/11/25 03:30 94 34 H 91/74 95 01/11/25 03:15 100 24 H 88/61 97 01/11/25 03:00 103 H 26 H 90/61 94 01/11/25 02:45 102 H 26 H 91/60 97 Intake & Output/Weight 01/09/25 01/10/25 01/11/25 01/12/25 06:59 06:59 06:59 06:59 Intake Total 1219.5 / 1219.5 1221.25 / 1221.25 Output Total 600 / 600 Balance 619.5 / 619.5 1221.25 / 1221.25 Weight 99.32 kg Vitals Last Vital Signs Temp 98.5 F 01/11/25 07:15 Pulse 109 H 01/11/25 10:00 Resp 25 H 01/11/25 10:00 BP 86/58 01/11/25 10:00 Pulse Ox 100 01/11/25 10:00 O2 Del Method Room Air 01/11/25 10:00 TS Medications Medications Hydrocodone Bitart/Acetaminophen (Hydrocodone-Acetaminophen 5-325 Mg Tablet) 1 tab PO Q4H PRN PRN Reason: MODERATE PAIN Last Admin: 01/11/25 13:57 Dose: 1 tab Doxycycline Hyclate 100 mg/ (Sodium Chloride) 100 mls @ 100 mls/hr IV Q12H RUFUS; Protocol Last Infusion: 01/11/25 05:52 Dose: Infused Norepinephrine Bitartrate (Levophed) 4 mg in 250 mls @ 0 mls/hr IV .Q0M RUFUS; Protocol Sodium Bicarbonate 150 meq/ (Dextrose) 1,150 mls @ 125 mls/hr IV .Q9H12M RUFUS Last Infusion: 01/11/25 10:56 Dose: 100 mls/hr Pantoprazole Sodium (Pantoprazole 40 Mg Sdv) 40 mg IVP DAILY [facility] Last Admin: 01/11/25 08:30 Dose: 40 mg Discontinued Medications Sodium Chloride (Sodium Chloride 0.9%) 500 mls @ 500 mls/hr IV ONCE ONE Stop: 01/10/25 12:46 Last Infusion: 01/10/25 18:29 Dose: Infused Sodium Chloride 100 ml/ N/A 100 mls @ 200 mls/hr IV ONCE ONE Stop: 01/10/25 17:05 Sodium Chloride (Sodium Chloride 3%) 500 mls @ 30 mls/hr IV .[id number] [facility] Stop: 01/10/25 21:44 Last Infusion: 01/10/25 18:28 Dose: 0 mls/hr Phytonadione 5 mg/ Sodium (Chloride) 50.5 mls @ 151.5 mls/hr IV ONCE ONE Stop: 01/10/25 17:00 Last Infusion: 01/10/25 18:30 Dose: Infused Pantoprazole Sodium (Pantoprazole Dr 40 Mg Tablet) 40 mg PO DAILY [facility] Sodium Polystyrene Sulfonate (Sodium Polystyrene Sulfonate 15 Gm/60 Ml Btl) 15 gm PO ONCE ONE Stop: 01/10/25 16:39 Last Admin: 01/10/25 18:01 Dose: 15 gm Allergies Penicillins Allergy (Severe, Verified 01/10/25 10:35) ALGY-Anaphylaxis Home Medications warfarin 5 mg tablet 5 mg PO DAILY #90 tabs 10/15/23 [Rx Confirmed 01/10/25] spironolactone 50 mg tablet 50 mg PO DAILY 12/07/23 [History Confirmed 01/10/25] warfarin 4 mg tablet 4 mg PO DAILY #90 tabs 08/08/24 [Rx Confirmed 01/10/25] metoprolol succinate 50 mg tablet,extended release 24 hr 50 mg PO DAILY 01/10/25 [History Confirmed 01/10/25] Discharge Plan Discharge Patient Disposition: Home Condition: Stable Prescriptions: No Action spironolactone 50 mg tablet 50 mg PO DAILY warfarin 5 mg tablet 5 mg PO DAILY Qty: 90 0RF Protocol: Dose Management Condition: Thursday Dose/Route: 2.5 mg Instruction: 0.5 x 5 mg tablets Condition: Thursday Dose/Route: 2.5 mg Instruction: 0.5 x 5 mg tablets Condition: Thursday Dose/Route: 0 mg Instruction: 0 tablets Condition: Thursday Dose/Route: 2.5 mg Instruction: 0.5 x 5 mg tablets Condition: Dose/Route: 2.5 mg Instruction: 0.5 x 5 mg tablets Condition: Thursday Dose/Route: 2.5 mg Instruction: 0.5 x 5 mg tablets Condition: Thursday Dose/Route: 2.5 mg Instruction: 0.5 x 5 mg tablets Protocol Text: Adjustment Start Date: Thursday01/04/25 INR Value: 44.60 SECONDS INR Date: 12/27/24 Recheck Date: 01/10/25 warfarin 4 mg tablet 4 mg PO DAILY Qty: 90 1RF Protocol: Dose Management Condition: Thursday Dose/Route: 2.5 mg Instruction: 0.5 x 5 mg tablets Condition: Thursday Dose/Route: 2.5 mg Instruction: 0.5 x 5 mg tablets Condition: Thursday Dose/Route: 0 mg Instruction: 0 tablets Condition: Thursday Dose/Route: 2.5 mg Instruction: 0.5 x 5 mg tablets Condition: Dose/Route: 2.5 mg Instruction: 0.5 x 5 mg tablets Condition: Thursday Dose/Route: 2.5 mg Instruction: 0.5 x 5 mg tablets Condition: Thursday Dose/Route: 2.5 mg Instruction: 0.5 x 5 mg tablets Protocol Text: Adjustment Start Date: Thursday01/04/25 INR Value: 44.60 SECONDS INR Date: 12/27/24 Recheck Date: 01/10/25 metoprolol succinate 50 mg tablet extended release 24 hr 50 mg PO DAILY [place] Follow[facility] [place] for DC: Cardiology and Nephrology Referrals: Griselda Fernández [Primary Care Provider, Family Practice] Discharge Diet: Advance as tolerated and Usual diet Discharge Activity: Resume usual activity and Limit activity as instructed Patient Instructions: Opioid Safety, Patient Portal & Jami Instructions Transfer Attestations Time Spent in Transfer Care: critical care time Critical Care Time (min): 40 Specific Discharge Activities: educating patient, educating and/or supporting family/caregiver, discussing with pcp/other providers, discussing with window caser/social workers/dc planners, documenting/other paperwork and evaluating patient/reviewing data Status at Transfer: Cognitive status at transfer: cognitively intact ; Behavioral status at transfer: cooperative ; Functional status at transfer: other assisted ambulation ; Overall status at transfer: patient is not back to baseline Quality Metrics Clinical Quality Measures [ No reported AMI, CVA or VTE this stay] Coding Level of Care Code Critical Care >/= 30 minutes Diagnoses Supratherapeutic INR R79.1 Anticoagulated with warfarin Z79.01 History of mechanical aortic valve replacement Z95.2 Pacemaker Z95.0 CHF (congestive heart failure) I50.9 Heart failure chronicity: acute on chronic Heart failure type: unspecified GI (gastrointestinal bleed) K92.2 GI bleed type/associated pathology: unspecified gastrointestinal hemorrhage type Acute renal failure N17.9 Acute renal failure type: unspecified Dyspnea R06.00 Dyspnea type: unspecified
[2025-01-11] MEDS: norepinephrine 4 MG/250 ML BAG 7.5 MG IV (16:34)
[2025-01-11 16:36] LABS: Anion Gap 18.0 (5-19); Blood Urea Nitrogen 73 mg/dL (6-20); Calcium 6.9 mg/dL (8.5-10.5); Carbon Dioxide 18 mmol/L (22-29); Chloride 88 mmol/L (98-107); Creatinine Clr Calc Pharmacy 24.8088; Glucose 161 mg/dL (65-115); Osmolality Calculated 275 mOsm/kg (285-295); Potassium 4.0 mmol/L (3.5-5.1); Sodium 120 mmol/L (136-145)
--- NOTE | 2025-01-11 17:24 | USCV_ITS ---
Aspen Horvath Age: 49 Gender: M : 1975 Exam Date: 01/11/2025 04:07 Ordering Phys: Leeann Peralta Technologist: SOLANGE [place]am Location[place] [facility] [place] [facility] [place] Indication: CHF, history of pacer AND mechanical AVR 2023 BP: 93 / 58 HR: 80 Rhythm: Paced rhythm with strings of atrial fibrillation Technical Quality: Adequate MEASUREMENTS (Male / Female) Normal Values 2D ECHO LV Diastolic Diameter PLAX 4.6 cm 4.2 - 5.9 / 3.9 - 5.3 cm IVS Diastolic Thickness 1.1 cm 0.6 - 1.0 / 0.6 - 0.9 cm IVS Systolic Thickness 1.3 cm LVPW Diastolic Thickness 1.5 cm 0.6 - 1.0 / 0.6 - 0.9 cm LVPW Systolic Thickness 1.6 cm LVOT Diameter 2.0 cm LV Ejection Fraction 2D Teich 43.9 % LV Ejection Fraction MOD 4C 53.1 % LV Ejection Fraction MOD 2C 30.3 % LV Ejection Fraction 2C AL 28.2 % LA Diameter 2.9 cm Aorta at Sinotubular Diameter 2.4 cm IVC Diameter 1.2 cm M-MODE LA Ao Ratio MM 1.4 AV Cusp Separation MM 1.5 cm DOPPLER AV Peak Velocity 197.0 cm/s LVOT Peak Velocity 129.0 cm/s AV Area Cont Eq vti 2.3 cm squared AV Area Cont Eq pk 2.1 cm squared MV Peak Velocity 92.0 cm/s MV Area PHT 2.3 cm squared Mitral E to A Ratio 2.4 TV Peak Velocity 219.0 cm/s TR Peak Velocity 219.0 cm/s TR Peak Gradient 19.2 mmHg TV Peak E Velocity 52.0 cm/s PV Peak Velocity 93.0 cm/s FINDINGS Left Ventricle Mildly increased left ventricular cavity size. Moderately to severely decreased left ventricular systolic function. Left ventricular ejection fraction is estimated at 35-40 %. There appeared to be anterior and septal wall hypokinesis, there appeared to be septal bounce could be secondary to interventricular conduction delay or postoperative state. Please note that images are suboptimal may need to use contrast for accurate ejection fraction documentation. Right Ventricle The right ventricle is normal in size and function. Right Atrium The right atrium is normal in size. Left Atrium The left atrium is normal in size. Mitral Valve Structurally normal mitral valve. No mitral valve stenosis. Mild mitral valve regurgitation. Aortic Valve Bioprosthetic mechanical valve working fine and sitting in normal position without significant valvular or paravalvular regurgitation/leak. Tricuspid Valve Structurally normal tricuspid valve without significant stenosis or regurgitation. Pulmonary artery systolic pressure is normal. Pulmonic Valve Structurally normal pulmonic valve without significant stenosis. There is no pulmonic regurgitation. Pericardium Normal pericardium without effusion. Aorta Normal ascending aorta dimension. IVC Moderately dilated IVC. CONCLUSIONS Mildly increased left ventricular cavity size. Moderately to severely decreased left ventricular systolic function. Left ventricular ejection fraction is estimated at 35-40 %. There appeared to be anterior and septal wall hypokinesis, there appeared to be septal bounce could be secondary to interventricular conduction delay or postoperative state. Please note that images are suboptimal may need to use contrast for accurate ejection fraction documentation. Bioprosthetic mechanical valve working fine and sitting in normal position without significant valvular or paravalvular regurgitation/leak. Structurally normal mitral valve. No mitral valve stenosis. Mild mitral valve regurgitation. There is no pericardial effusion. Right atrial pressure is around 15 mm of mercury. Phill Amos MD (Electronically Signed) Final Date: 11 January 2025 07:42 S
--- NOTE | 2025-01-11 17:32 | PC.NURSE ---
Dr. holland ordered to stop bicarb drip and to start normal saline. Dr. Moctezuma then put a sodium chloride 3% fluid order in. Dr. Holland ordered to stop fluids and to just run the 3% sodium chloride.
--- NOTE | 2025-01-11 18:06 | PC.NURSE ---
Report was called to Amanda in [place] but the litigation secretary told this nurse that their room was dirty and to call back after shift change to see if they had enough cleaning staff.
[2025-01-11 22:39] LABS: Anion Gap 16.1 (5-19); Blood Urea Nitrogen 70 mg/dL (6-20); Calcium 7.1 mg/dL (8.5-10.5); Carbon Dioxide 20 mmol/L (22-29); Chloride 90 mmol/L (98-107); Creatinine Clr Calc Pharmacy 24.8088; Glucose 126 mg/dL (65-115); Osmolality Calculated 276 mOsm/kg (285-295); Potassium 4.1 mmol/L (3.5-5.1); Sodium 122 mmol/L (136-145)
[2025-01-12] VITALS (35 sets, daily range): BP systolic 82–110; BP diastolic 57–79; PULSE 90–110; RESP 14–45; TEMP 36.7; O2SAT 62–100
[2025-01-12 02:25] LABS: Bacillus cereus group Not Detected (NOT DETECT); Bacillus subtillis group Not Detected (NOT DETECT); Corynebacterium Not Detected (NOT DETECT); Cutibacterium acnes (P.acnes) Not Detected (NOT DETECT); Enterococcus faecalis Not Detected (NOT DETECT); Enterococcus faecium Not Detected (NOT DETECT); Listeria Not Detected (NOT DETECT); Micrococcus Not Detected (NOT DETECT); Pan Candida Detected (NOT DETECT); Pan Gram-Negative Not Detected (NOT DETECT); Staphylococcus epidermidis Not Detected (NOT DETECT); Staphylococcus lugdunensis Not Detected (NOT DETECT); Staphylococcus species Not Detected (NOT DETECT); Streptococcus anginosus group Not Detected (NOT DETECT); Streptococcus pyogenes Not Detected (NOT DETECT); Streptococcus species Not Detected (NOT DETECT)
[2025-01-12 05:14] LABS: Anion Gap 14.9 (5-19); Blood Urea Nitrogen 67 mg/dL (6-20); Calcium 7.1 mg/dL (8.5-10.5); Carbon Dioxide 21 mmol/L (22-29); Chloride 91 mmol/L (98-107); Creatinine Clr Calc Pharmacy 26.8176; Glucose 121 mg/dL (65-115); Osmolality Calculated 277 mOsm/kg (285-295); Potassium 3.9 mmol/L (3.5-5.1); Sodium 123 mmol/L (136-145)
--- NOTE | 2025-01-12 05:41 | PC.NURSE ---
Report called to Amanda and Neftali Bearden. Patient transferring to [facility] [id number]. Report called to [phone]
[2025-01-12] MEDS: doxycycline 100 MG in sodium chloride 0.9% (plus) 100 ML IV (06:19)
[2025-01-12 07:34] LABS: PROTEIN, TOTAL 5.2 g/dL (6.1-8.1)
--- NOTE | 2025-01-12 09:18 | PC.NURSE ---
Patient was picked up by Neftali Bearden at 0832. Patient's belongings were sent with the patient. Patient was stable during transfer.
[2025-01-12 09:31] LABS: Hematocrit 23.1 % (37-53); Hemoglobin 7.90 g/dL (11.27-16.99); Mean Corpuscular HGB Conc 34.2 g/dL (30-55); Mean Corpuscular Hemoglobin 28.1 pg (27-33); Mean Corpuscular Volume 82.2 fl (82-101); Nucleated Red Blood Cells % 0 %; Platelet Count 79 10^3/cmm (157-399); Red Blood Count 2.81 10^6/uL (3.85-5.65); White Blood Count 1.79 10^3/uL (3.29-11.43)
[2025-01-12 12:25] LABS: COMPLEMENT COMPONENT C3C 28 mg/dL (82-185); COMPLEMENT COMPONENT C4C 6 mg/dL (15-53)
[2025-01-12 16:04] LABS: COMPLEMENT, TOTAL (CH50) <13 U/mL (31-60)
[2025-01-12 22:21] LABS: ALPHA 1 GLOBULIN 0.5 g/dL (0.2-0.3); ALPHA 2 GLOBULIN 0.4 g/dL (0.5-0.9); BETA 1 GLOBULIN 0.2 g/dL (0.4-0.6); BETA 2 GLOBULIN 0.3 g/dL (0.2-0.5)
[2025-01-13 02:40] LABS: CENTROMERE B ANTIBODY <1.0 NEG AI (<1.0 NEG); JO-1 ANTIBODY <1.0 NEG AI (<1.0 NEG); RNP ANTIBODY <1.0 NEG AI (<1.0 NEG); SCL-70 ANTIBODY <1.0 NEG AI (<1.0 NEG); SS-B <1.0 NEG AI (<1.0 NEG)
[2025-01-13 13:45] LABS: Creatinine, Random Urine 118 mg/dL (20-320); Protein, Total, Random 111 mg/dL (5-25); Protein/Creatinine Ratio 0.941 (0.025-0.148); Protein/Creatinine Ratio 941 mg/g creat (25-148)
[2025-01-14 13:05] LABS: ANCA Screen NEGATIVE (NEGATIVE)
[2025-01-16 14:50] LABS: THYROID PEROXIDASE ANTIBODIES <1 IU/mL (<9)
[2025-01-16 20:44] LABS: DNA AB (DS) CRITHIDIA,IFA NEGATIVE (NEGATIVE)
[2025-01-18 10:34] LABS: Albumin,Urine Random 39 %; Alpha-1-Globulins Urine Random 10 %; Alpha-2-Globulins Urine Random 14 %; Beta-Globulin,Urine Random 14 %; Gamma Globulin,Urine Random 22 %
== END 2025-01-12 08:32 | disposition short-term general hospital (02) | DRG 545 ==
LOC: ER 14:59 → ICU 15:23
PROVIDERS: Hospitalist; Admitting Provider Student in an Organized Health Care Education/Training Program; Emergency Provider Physician Assistant; PCP Registered Nurse; Visit Provider Student in an Organized Health Care Education/Training Program
DX: M31.19 Other thrombotic microangiopathy (principal); J18.9 Pneumonia, unspecified organism; D62 Acute posthemorrhagic anemia; D68.32 Hemorrhagic disorder due to extrinsic circulating anticoagulants; N17.9 Acute kidney failure, unspecified; E87.1 Hypo-osmolality and hyponatremia; E87.20 Acidosis, unspecified; K92.1 Melena; I95.9 Hypotension, unspecified; D70.9 Neutropenia, unspecified; R00.0 Tachycardia, unspecified; I25.10 Atherosclerotic heart disease of native coronary artery without angina pectoris; E87.5 Hyperkalemia; F17.220 Nicotine dependence, chewing tobacco, uncomplicated; I50.9 Heart failure, unspecified; Z79.01 Long term (current) use of anticoagulants; Z95.2 Presence of prosthetic heart valve; Z95.0 Presence of cardiac pacemaker; Z88.0 Allergy status to penicillin; Z95.1 Presence of aortocoronary bypass graft
CPT/HCPCS: 36415; 36416; 51702; 71045; 74176; 76770; 80048; 80053; 80503; 81001; 82044; 82436; 82550; 82570; 82607; 82728; 82962; 83010; 83540; 83550; 83605; 83615; 83735; 83880; 83935; 84133; 84155; 84156; 84165; 84166; 84300; 84484; 85025; 85045; 85610; 86036; 86160; 86162; 86235; 86255; 86376; 86850; 86900; 87040; 87086; 87205; 87637; 93005; 93306; 93308; 97116; 97162; 97167; 97535; 99285; J2470; J3430; J3490; J7030; J7040; J7070; J7131; J9999

== ENCOUNTER → 2025-05-05 09:09 | Outpatient (BNVA) | payer MEDICAID, SELFPAY | PROVIDERS: PCP Registered Nurse; Visit Provider Podiatrist Foot & Ankle Surgery | DX: L60.0 Ingrowing nail (principal); L03.032 Cellulitis of left toe | CPT/HCPCS: 11730; 11750; 99214; A6219; J9999 ==

== ENCOUNTER → 2025-05-23 08:47 | Outpatient (BNVA) | payer MEDICAID, SELFPAY | PROVIDERS: PCP Internal Medicine; Visit Provider Podiatrist Foot & Ankle Surgery | DX: L60.0 Ingrowing nail (principal); L03.032 Cellulitis of left toe | CPT/HCPCS: 99213 ==